=== PATIENT | female | born 1960 | race Hispanic/Latino ===

== ENCOUNTER 2016-12-23 09:21 | Outpatient (CLI) | payer BC ==
[2016-12-23 09:43] LABS: Basophils % (Auto) 0.7 % (0.0-1.8); Eosinophils % (Auto) 2.5 % (0.0-4.3); Hematocrit 38.7 % (30.3-42.9); Hemoglobin 12.9 gm/dl (10.1-14.3); Mean Corpuscular HGB Conc 33 % (30-34); Mean Corpuscular Hemoglobin 31 pg (28-32); Mean Corpuscular Volume 92 fl (79-97); Platelet Count 226 K/mm3 (140-440); Red Blood Count 4.21 M/mm3 (3.65-5.03); Red Cell Distribution Width 14.5 % (13.2-15.2); White Blood Count 6.6 K/mm3 (4.5-11.0)
[2016-12-23 10:03] LABS: Alanine Aminotransferase 17 units/L (7-56); Albumin 3.8 g/dL (3.9-5); Albumin/Globulin Ratio 1.3 %; Alkaline Phosphatase 100 units/L (35-129); Anion Gap 15 mmol/L; BUN/Creatinine Ratio 17.77; Blood Urea Nitrogen 16 mg/dL (7-17); Calcium 9.3 mg/dL (8.4-10.2); Carbon Dioxide 24 mmol/L (22-30); Cholesterol 167 mg/dL (50-199); Glucose 133 mg/dL (65-100); HDL Cholesterol 41 mg/dL (40-59); LDL Cholesterol,Direct 98 mg/dL (50-130); Potassium 3.4 mmol/L (3.6-5.0); Sodium 139 mmol/L (137-145); Total Protein 6.8 g/dL (6.3-8.2); Triglycerides 141 mg/dL (2-149)
== END 2016-12-23 09:22 | disposition home or self-care (01) ==
LOC: LAB 09:21
PROVIDERS: ATTEND Physician Assistant
DX: I10 Essential (primary) hypertension (principal); E78.00 Pure hypercholesterolemia, unspecified; E88.81 Metabolic syndrome and other insulin resistance
CPT/HCPCS: 36415; 80053; 80061; 83036; 85025

== ENCOUNTER 2017-07-01 14:41 | Outpatient (CLI) | payer BC ==
--- NOTE | 2017-07-02 08:55 | Mammography Report ---
Bilateral screening mammogram the tomosynethesis: Compared to 07/15/16. CAD study utilized. Findings: Heterogeneous breast parenchyma bilaterally. Benign calcifications upper outer left breast without significant interval change. No distinct mass. Benign axillary nodes. Impression: Benign findings. Annual followup recommended. BI-RADS CATEGORY: 2 = Benign ACR BI-RADS MAMMOGRAPHIC CODES: 0 = Needs additional imaging evaluation; 1 = Negative; 2 = Benign; 3 = Probably benign; 4 = Suspicious; 5 = Malignant; 6 = Known biopsy-proven malignancy COMMENT: 1. Dense breast tissue, i.e., adenosis, fibrocystic changes, etc., may obscure an underlying neoplasm. 2. Approximately 10% of cancers are not detected with mammography. 3. A negative mammography report should not delay biopsy if a clinically suspicious mass is present. COMMENT: Patient follow-up letters are generated in [employer]
== END 2017-07-01 14:42 | disposition home or self-care (01) ==
LOC: MAMMO 14:41
PROVIDERS: ATTEND Obstetrics & Gynecology
DX: Z12.31 Encounter for screening mammogram for malignant neoplasm of breast (principal)
CPT/HCPCS: 77063; G0202; 77067

== ENCOUNTER 2017-09-23 16:08 | Outpatient (CLI) | payer BC ==
--- NOTE | 2017-09-25 11:31 | Magnetic Resonance Report ---
MRI THORACIC SPINE WITHOUT AND WITH CONTRAST: 09/23/17 16:23:00 CLINICAL: Multiple sclerosis. COMPARISON: 04/14/16 TECHNIQUE: Sagittal and axial T1 and T2, and sagittal STIR sequences plus sagittal and axial T1 fat-sat postcontrast sequences on a 1.5 [place] magnet. FINDINGS: A right paracentral disc protrusion at T2-3 is unchanged compared to prior exam. However, it was described to be at T3-4 on that exam. It produces effacement of the thecal sac but no cord compression. A lesser degree of degenerative disc disease at other levels is stable. The previously described T2 hyperintense right cord lesion at T4-5 is slightly longer and measures 2.7 cm compared to 2.0 cm on the last exam on the STIR sequence. The lesion demonstrates no enhancement. No other cord lesions are identified. IMPRESSION: 1. A previously described cord lesion at T4-5 is slightly longer on this exam. 2. No other cord lesions. 3. A stable right paracentral T2-3 disc protrusion producing effacement of the thecal sac but no cord compression. 4. No new disc protrusion or bulge.
--- NOTE | 2017-10-19 17:16 | Magnetic Resonance Report ---
MR scan of the cranium was performed with and without contrast. Pulse sequences included: 1. T1 weighted sagittal and axial images without contrast and T1 axial and coronal images with contrast 2. T2 weighted axial and coronal images 3. FLAIR axial images 4. Diffusion-weighted axial images 5. Apparent diffusion coefficient images 6. Gradient echo axial T2 images Views of the posterior fossa showed a normal craniocervical junction. Cerebellar pontine angles were normal with normal seventh-eighth nerve complexes. Brainstem and cerebellum were normal. The ventricular system showed no dilatation or distortion. Images of the hemispheres showed no significant areas of increased or decreased signal. Sinuses, pituitary, flow voids in the [place], orbits, and basal ganglia were normal. There are no abnormal areas of enhancement with contrast. Impression: Normal MR scan of the cranium with and without contrast this study was compared with the patient's previous mr scan of 05/22/2016 and no significant changes are seen
== END 2017-09-23 16:09 | disposition home or self-care (01) ==
LOC: MRI 16:08
PROVIDERS: ATTEND Specialist
DX: G35 Multiple sclerosis (principal); M51.24 Other intervertebral disc displacement, thoracic region
CPT/HCPCS: 36415; 70553; 72157; 82565; 84520; A9577

== ENCOUNTER 2018-09-21 11:16 | Outpatient (CLI) | payer BC ==
--- NOTE | 2018-09-21 11:59 | XRay Report ---
AP ABDOMEN: HISTORY: Left flank pain. The abdominal gas pattern is unremarkable. No masses or organomegaly is identified and there is no gross evidence of free air or fluid. No significant soft tissue calcifications are noted. IMPRESSION: Unremarkable abdomen. No obvious nephrolithiasis on x-ray.
== END 2018-09-21 11:17 | disposition home or self-care (01) ==
LOC: XRAY 11:16
PROVIDERS: ATTEND Urology
DX: R10.9 Unspecified abdominal pain (principal); I10 Essential (primary) hypertension; E78.00 Pure hypercholesterolemia, unspecified; K21.9 Gastro-esophageal reflux disease without esophagitis; E66.9 Obesity, unspecified; E11.9 Type 2 diabetes mellitus without complications; M19.90 Unspecified osteoarthritis, unspecified site; Z90.49 Acquired absence of other specified parts of digestive tract; Z90.89 Acquired absence of other organs
CPT/HCPCS: 74018

== ENCOUNTER 2018-10-14 09:59 | Outpatient (CLI) | payer BC ==
[2018-10-14 11:09] LABS: Basophils % (Auto) 0.7 % (0.0-1.8); Eosinophils # (Auto) 0.2 K/mm3 (0.0-0.4); Hematocrit 38.1 % (30.3-42.9); Hemoglobin 12.8 gm/dl (10.1-14.3); Lymphocytes # (Auto) 1.6 K/mm3 (1.2-5.4); Lymphocytes % (Auto) 23.5 % (13.4-35.0); Mean Corpuscular HGB Conc 34 % (30-34); Mean Corpuscular Volume 95 fl (79-97); Monocytes # (Auto) 0.7 K/mm3 (0.0-0.8); Monocytes % (Auto) 9.5 % (0.0-7.3); Platelet Count 228 K/mm3 (140-440); Red Blood Count 4.01 M/mm3 (3.65-5.03); Red Cell Distribution Width 15.4 % (13.2-15.2)
[2018-10-14 11:13] LABS: Albumin 3.8 g/dL (3.9-5); Calcium 9.5 mg/dL (8.4-10.2)
== END 2018-10-14 10:00 | disposition home or self-care (01) ==
LOC: LAB 09:59
PROVIDERS: ATTEND Nurse Practitioner Family
DX: G35 Multiple sclerosis (principal); G37.9 Demyelinating disease of central nervous system, unspecified; E78.00 Pure hypercholesterolemia, unspecified; J45.909 Unspecified asthma, uncomplicated; K21.9 Gastro-esophageal reflux disease without esophagitis; M19.90 Unspecified osteoarthritis, unspecified site
CPT/HCPCS: 36415; 80053; 82306; 85025

== ENCOUNTER 2018-10-19 16:00 | Outpatient (CLI) | payer BC ==
--- NOTE | 2018-10-20 02:39 | Magnetic Resonance Report ---
PROCEDURE: MR BRAIN WO/W CON TECHNIQUE: Magnetic resonance imaging of the brain was performed before and after the IV injection o f paramagnetic contrast. HISTORY: MULTIPLE SCLEROSIS, FAX REPORT TO [phone] COMPARISONS: None . FINDINGS: Skull base and calvarium: Normal. Paranasal sinuses: The visualized paranasal sinuses are clear. Cerebellum: No evidence of hemorrhage, ischemia or mass . Brainstem: No evidence of hemorrhage, ischemia or mass . Cerebrum: No evidence of hemorrhage, ischemia or mass . There are small foci of high signal intensit y in the periventricular white matter which are nonspecific. These could be evidence of early ischemi c gliosis. Multiple sclerosis is considered less likely. Ventricles: Normal in size and morphology for the patient's age. Pituitary gland and sella: Normal. Globes and orbits: Normal. Vasculature: Normal arterial and venous flow voids. Abnormal enhancement: None. IMPRESSION: There is no hemorrhage, edema, mass, mass effect or midline shift. There is no evidence of acute isch emic injury. There are small foci of high signal intensity in the periventricular white matter which are nonspecif ic. These could be evidence of early ischemic gliosis. Multiple sclerosis is considered less likely. There is no abnormal enhancement. This document is electronically signed by Owen Nogueira MD., October 20 2018 02:37:59 AM ET
--- NOTE | 2018-10-20 19:00 | Magnetic Resonance Report ---
PROCEDURE: MR CERVICAL SPINE WO/W CON HISTORY: MULTIPLE SCLEROSIS, FAX REPORT TO [phone] FINDINGS: MRI of the cervical spine was performed using sagittal T1, sagittal T2, sagittal inversion recovery, axial T1, axial T2*gradient echo, and axial and sagittal postcontrast T1-weighted images ob tained following the intravenous administration of gadolinium-based contrast. These images demonstrate that the visualized portion of the posterior fossa is within normal limits. The C1-C2 articulation is normally aligned. At C2-C3 there are no posterior disc abnormalities. At C3-C4 there is a minimal posterior disc bulge which does not result in canal stenosis or significa nt neural foraminal narrowing. At C4-C5 there is a small posterior disc bulge which mildly effaces the anterior margin of the thecal sac but does not result in canal stenosis. There is no evidence of significant neural foraminal narr owing or nerve root impingement. At C5-C6 there is a central and left paracentral disc protrusion which effaces the anterior margin of thecal sac and results in mild canal stenosis. There is [id number] left and mild right foramin al narrowing without definite nerve root impingement. At C6-C7 there is loss of disc height and T2 signal intensity. There is mild bilateral neural foramin al narrowing without nerve root impingement. At C7-T1 there is loss of disc T2 signal intensity. There are no posterior disc abnormalities. At T1-T2 there are no posterior disc abnormalities. At T2-T3 there is a right paracentral disc protrusion which does not result in canal stenosis. There is mild right foraminal narrowing. There is no evidence of demyelinating disease. Following administration of intravenous contrast, no a bnormal enhancement is seen. IMPRESSION: Mild canal stenosis at C5-C6 No MR evidence of demyelinating disease in the cervical spine This document is electronically signed by Greg Fajardo MD., October 20 2018 06:57:53 PM ET
--- NOTE | 2018-10-20 19:13 | Magnetic Resonance Report ---
PROCEDURE: MR THORACIC SPINE WO/W CON HISTORY: MULTIPLE SCLEROSIS, FAX REPORT TO [phone] FINDINGS: MRI of the thoracic spine was performed using sagittal T1, sagittal T2, sagittal inversion recovery, axial T2, axial T1 and axial and sagittal postcontrast T1-weighted images obtained followin g the intravenous administration of gadolinium-based contrast. These images demonstrate a right paracentral disc protrusion at T2-T3 which does not result in canal stenosis or nerve root impingement. There is also a small right paracentral disc protrusion at T3-T4 which does not result in canal stenosis or significant neural foraminal narrowing.At T10-11, there is a small right paracentral disc protrusion which does not result in canal stenosis or nerve root impi ngement. At all other levels of the thoracic spine there is loss of disc T2 signal intensity. There are no pos terior disc abnormalities. The conus medullaris lies at the level of L1 and appears unremarkable. There is a region of increased T2 signal intensity within the thoracic cord at the levels of T4-T5, m easuring approximately 0.4 cm AP, 0.6 cm transverse and extending for 2.3 cm along the long axis of t he cord. This would be consistent with demyelinating disease. This does not display abnormal enhancem ent following contrast administration. There is a region of abnormal low T1, increased inversion recovery signal within the anterior aspect of T12. This appears to enhance following contrast administration measuring approximately 1.3 cm. Thi s lesion is not characterized. Metastatic disease is not excluded although no other similar lesion is identified. Consider bone scan or thin section CT for further evaluation. IMPRESSION: Region of abnormal cord signal at T4-T5 consistent with demyelination in patient with rep orted known multiple sclerosis. This does not enhance following contrast ministration Bone lesion within T12, not characterized. Consider bone scan or thin section CT. This document is electronically signed by Greg Fajardo MD., October 20 2018 07:11:59 PM ET
== END 2018-10-19 16:01 | disposition home or self-care (01) ==
LOC: MRI 16:00
PROVIDERS: ATTEND Nurse Practitioner Family
DX: G35 Multiple sclerosis (principal); M50.21 Other cervical disc displacement, high cervical region; M48.02 Spinal stenosis, cervical region; M51.24 Other intervertebral disc displacement, thoracic region; I10 Essential (primary) hypertension; E78.00 Pure hypercholesterolemia, unspecified; J45.909 Unspecified asthma, uncomplicated; E66.9 Obesity, unspecified; K21.9 Gastro-esophageal reflux disease without esophagitis; M19.90 Unspecified osteoarthritis, unspecified site; E11.9 Type 2 diabetes mellitus without complications; Z90.49 Acquired absence of other specified parts of digestive tract; Z90.89 Acquired absence of other organs
CPT/HCPCS: 70553; 72156; 72157; A9577

== ENCOUNTER 2018-11-30 08:07 | Outpatient (CLI) | payer BC ==
[2018-11-30 08:28] LABS: Basophils # (Auto) 0.1 K/mm3 (0.0-0.1); Basophils % (Auto) 1.2 % (0.0-1.8); Eosinophils # (Auto) 0.3 K/mm3 (0.0-0.4); Eosinophils % (Auto) 4.5 % (0.0-4.3); Hematocrit 39.3 % (30.3-42.9); Hemoglobin 13.1 gm/dl (10.1-14.3); Lymphocytes # (Auto) 1.6 K/mm3 (1.2-5.4); Lymphocytes % (Auto) 24.6 % (13.4-35.0); Mean Corpuscular HGB Conc 33 % (30-34); Mean Corpuscular Volume 95 fl (79-97); Monocytes # (Auto) 0.6 K/mm3 (0.0-0.8); Monocytes % (Auto) 9.3 % (0.0-7.3); Platelet Count 263 K/mm3 (140-440); Red Blood Count 4.13 M/mm3 (3.65-5.03)
[2018-11-30 08:58] LABS: Albumin 3.9 g/dL (3.9-5); Calcium 9.8 mg/dL (8.4-10.2); Chol/HDL Ratio 2.91 %
== END 2018-11-30 08:08 | disposition home or self-care (01) ==
LOC: LAB 08:07
PROVIDERS: ATTEND Physician Assistant
DX: E78.00 Pure hypercholesterolemia, unspecified (principal); E88.81 Metabolic syndrome and other insulin resistance; E78.6 Lipoprotein deficiency; I10 Essential (primary) hypertension; J45.909 Unspecified asthma, uncomplicated; K21.9 Gastro-esophageal reflux disease without esophagitis; E66.9 Obesity, unspecified; E11.9 Type 2 diabetes mellitus without complications; Z90.89 Acquired absence of other organs; Z90.49 Acquired absence of other specified parts of digestive tract
CPT/HCPCS: 36415; 80053; 80061; 83036; 85025

== ENCOUNTER 2019-01-18 09:01 | Outpatient (CLI) | payer BC ==
--- NOTE | 2019-01-18 13:32 | Ultrasound Report ---
RIGHT DIGITAL DIAGNOSTIC MAMMOGRAM with CAD: 01/18/19 09:01:00 CLINICAL: Six-month followup. COMPARISON:07/21/18 FINDINGS: Routine views plus spot magnification views were performed. The breast is heterogeneously dense, which may obscure small masses. No mass, architectural distortion or suspicious calcifications. Ultrasound of the right breast (including all four quadrants and the retroareolar area) was performed and demonstrated numerous benign cysts and no solid mass or suspicious shadowing. IMPRESSION: No mammographic evidence of malignancy.Benign cysts. BI-RADS CATEGORY: 2 -- Benign RECOMMENDATION: Return to routine mammographic screening. COMMENT: 1. Dense breast tissue, i.e., adenosis, fibrocystic changes, etc., may obscure an underlying neoplasm. 2. Approximately 10% of cancers are not detected with mammography. 3. A negative mammography report should not delay biopsy if a clinically suspicious mass is present. COMMENT: Patient follow-up letters are generated by our [employer] application.
== END 2019-01-18 09:02 | disposition home or self-care (01) ==
LOC: MAMMO 09:01
PROVIDERS: ATTEND Obstetrics & Gynecology
DX: N60.01 Solitary cyst of right breast (principal); M17.0 Bilateral primary osteoarthritis of knee; E78.00 Pure hypercholesterolemia, unspecified; I10 Essential (primary) hypertension; K21.9 Gastro-esophageal reflux disease without esophagitis; E66.9 Obesity, unspecified; E11.9 Type 2 diabetes mellitus without complications

== ENCOUNTER 2019-04-12 18:11 | Outpatient (CLI) | payer BC ==
[2019-04-12 18:40] LABS: Basophils # (Auto) 0.1 K/mm3 (0.0-0.1); Basophils % (Auto) 1.2 % (0.0-1.8); Eosinophils # (Auto) 0.2 K/mm3 (0.0-0.4); Eosinophils % (Auto) 2.4 % (0.0-4.3); Hemoglobin 13.3 gm/dl (10.1-14.3); Lymphocytes # (Auto) 1.6 K/mm3 (1.2-5.4); Lymphocytes % (Auto) 24.7 % (13.4-35.0); Mean Corpuscular HGB Conc 33 % (30-34); Mean Corpuscular Volume 93 fl (79-97); Monocytes # (Auto) 0.7 K/mm3 (0.0-0.8); Monocytes % (Auto) 10.3 % (0.0-7.3); Platelet Count 262 K/mm3 (140-440); Red Cell Distribution Width 15.8 % (13.2-15.2)
[2019-04-12 18:56] LABS: Albumin 4.3 g/dL (3.9-5); Calcium 10.1 mg/dL (8.4-10.2)
== END 2019-04-12 18:12 | disposition home or self-care (01) ==
LOC: LAB 18:11
PROVIDERS: ATTEND Psychiatry & Neurology Neurology
DX: G35 Multiple sclerosis (principal); E78.00 Pure hypercholesterolemia, unspecified; I10 Essential (primary) hypertension; J45.909 Unspecified asthma, uncomplicated; K21.9 Gastro-esophageal reflux disease without esophagitis; E11.9 Type 2 diabetes mellitus without complications; Z90.89 Acquired absence of other organs
CPT/HCPCS: 36415; 80053; 85025

== ENCOUNTER 2019-07-26 08:30 | Outpatient (CLI) | payer BC ==
[2019-07-26 08:43] LABS: Basophils # (Auto) 0.1 K/mm3 (0.0-0.1); Basophils % (Auto) 0.8 % (0.0-1.8); Eosinophils # (Auto) 0.1 K/mm3 (0.0-0.4); Eosinophils % (Auto) 2.3 % (0.0-4.3); Hematocrit 38.6 % (30.3-42.9); Hemoglobin 12.8 gm/dl (10.1-14.3); Lymphocytes % (Auto) 16.8 % (13.4-35.0); Mean Corpuscular HGB Conc 33 % (30-34); Mean Corpuscular Volume 92 fl (79-97); Monocytes # (Auto) 0.8 K/mm3 (0.0-0.8); Platelet Count 216 K/mm3 (140-440); Red Blood Count 4.18 M/mm3 (3.65-5.03); Red Cell Distribution Width 15.5 % (13.2-15.2)
[2019-07-26 09:06] LABS: Albumin 3.9 g/dL (3.9-5); Calcium 9.9 mg/dL (8.4-10.2)
== END 2019-07-26 08:31 | disposition home or self-care (01) ==
LOC: LAB 08:30
PROVIDERS: ATTEND Psychiatry & Neurology Neurology
DX: G35 Multiple sclerosis (principal)
CPT/HCPCS: 36415; 80053; 85025

== ENCOUNTER 2019-07-28 08:18 | Outpatient (CLI) | payer BC | END 2019-07-28 08:19 | disposition home or self-care (01) | LOC: ECHO 08:18 | PROVIDERS: ATTEND Family Medicine | DX: M79.89 Other specified soft tissue disorders (principal) | CPT/HCPCS: 93306 ==

== ENCOUNTER 2019-09-06 10:08 | Outpatient (CLI) | payer BC, OTHER ==
--- NOTE | 2019-09-08 12:43 | Magnetic Resonance Report ---
MR thoracic spine wo/w con INDICATION / CLINICAL INFORMATION: 58 years Female; MULTIPLE SCLEROSIS. TECHNIQUE: Multisequence, multiplanar images of the thoracic spine were obtained. Study limited by motion. COMPARISON: 10/19/2018 FINDINGS: ALIGNMENT: Mild excessive kyphosis and mild scoliosis of the thoracic spine identified. VERTEBRAE:Grossly normal marrow signal and vertebral body height for age. Multilevel, mild Schmorl's node seen without adjacent edema. Some component of epidural lipomatosis s een, which is not significantly changed from prior. Costovertebral, costotransverse, and facet joints demonstrate mild, scattered areas of degenerative c hange. Overall, no significant foraminal narrowing appreciated. Note, there is no evidence of edema in the T12 vertebral body, which was seen on prior exam-findings on prior study were felt to be reactive from spondylophyte formation. VISUALIZED SPINAL CORD: Focus of increased T2/STIR signal seen in the thoracic cord at the T4-5 level . This is unchanged from prior exam. INTERVERTEBRAL DISCS: There is a right paracentral/lateral recess disc protrusion at T2-3 which mildl y flattens right anterior hemicord. No impingement. Small left paracentral disc protrusion seen at T1 0-11. Minimal disc disease seen at other levels. Overall, there is no dominant herniation or signific ant canal stenosis appreciated. PARASPINAL SOFT TISSUES: No significant abnormality. ADDITIONAL FINDINGS: None. IMPRESSION: 1. No significant change in the cord signal abnormality when compared with prior exam. No signs of en hancement seen to suggest acute demyelination. Signer Name: Pieter Liriano MD, III Signed: 09/08/2019 12:38 PM Workstation Name: [id number]
--- NOTE | 2019-09-08 12:56 | Magnetic Resonance Report ---
MRI BRAIN 09/08/2019 INDICATION / CLINICAL INFORMATION: MULTIPLE SCLEROSIS. TECHNIQUE: Multiplanar, multisequence MR images of the brain were obtained. COMPARISON: 10/19/2018 FINDINGS: BRAIN / INTRACRANIAL CONTENTS: Unenhanced and enhanced MR images of the brain were obtained and orion red to a prior exam from 10/19/2018. Overall, there is been no significant change. Again seen are a few nonspecific periventricular and deep white matter T2 weighted hyperintensities i n the cerebral hemispheric white matter. There is no evidence of associated diffusion signal abnormal ity. There is no abnormal contrast enhancement. Ventricles and sulci are normal in size and shape. There is no evidence of acute ischemic injury, hemorrhage, or mass. There are no abnormal extra-axial fluid collections. There is no abnormal contrast enhancement. EXTRACRANIAL: Unremarkable CRANIOCERVICAL JUNCTION: No significant abnormality. VASCULAR FLOW-VOIDS: No significant abnormality. IMPRESSION: No acute abnormality. A few scattered white matter T2 weighted hyperintensities are present, unchanged when compared to 10/19. Signer Name: Tito Villegas MD Signed: 09/08/2019 12:52 PM Workstation Name: [id number]
--- NOTE | 2019-09-08 13:02 | Magnetic Resonance Report ---
MRI CERVICAL SPINE 09/08/2019 INDICATION / CLINICAL INFORMATION: MULTIPLE SCLEROSIS. COMPARISON: 10/19/2018 FINDINGS: GENERAL OBSERVATIONS: Unenhanced and enhanced MR images of the cervical spine were obtained and orion red to prior exam from 10/19/2018. There is been no change. Reversal of cervical lordosis is centered at the C5 level. Multilevel degenerative disc and facet kailyn nges are present. There is no evidence of spinal cord compression. There is no evidence of abnormal signal or enhanceme nt within the spinal cord. [id number] ANALYSIS: C7-T1: Mild symmetric diffuse disc bulging. C6-7: Moderate diffuse disc bulging, slightly more pronounced on the left. C5-6: Moderate symmetric diffuse disc bulging. C4-5: Mild diffuse disc bulging. C3-4: Minimal diffuse disc bulging. CRANIO-CERVICAL JUNCTION: Unremarkable. BONE MARROW: No significant abnormality. PARASPINAL SOFT TISSUES: No significant abnormality. IMPRESSION: Multilevel degenerative disc changes. No evidence of spinal cord abnormality. No significant change when compared to 10/19/2018. Signer Name: Tito Villegas MD Signed: 09/08/2019 12:57 PM Workstation Name: [id number]
== END 2019-09-06 10:09 | disposition home or self-care (01) ==
LOC: MRI 10:08
PROVIDERS: ATTEND Psychiatry & Neurology Neurology
DX: M47.813 Spondylosis without myelopathy or radiculopathy, cervicothoracic region (principal); M51.44 Schmorl's nodes, thoracic region; E88.2 Lipomatosis, not elsewhere classified; M50.23 Other cervical disc displacement, cervicothoracic region; M40.294 Other kyphosis, thoracic region; M41.84 Other forms of scoliosis, thoracic region; M51.24 Other intervertebral disc displacement, thoracic region
CPT/HCPCS: 70553; 72156; 72157; A9577

== ENCOUNTER 2019-09-13 15:25 | Outpatient (CLI) | payer BC ==
--- NOTE | 2019-09-13 17:44 | Vascular Lab Report ---
DUPLEX DOPPLER LOWER EXTREMITY ARTERIAL, BILATERAL INDICATION / CLINICAL INFORMATION: EDEMA. TECHNIQUE: Arterial duplex examination of both lower extremities performed using B-mode, color flow and spectral Doppler assessment. FINDINGS: RIGHT: Common Femoral Artery: PSV 88 cm/sec. Triphasic waveform. Proximal SFA: PSV 101 cm/sec. Triphasic waveform. Mid SFA: PSV 122 cm/sec. Triphasic waveform. Distal SFA: PSV 84 cm/sec. Triphasic waveform. Popliteal artery: PSV 74 cm/sec. Triphasic waveform. Posterior tibial artery: PSV 33 cm/sec. Biphasic waveform. Dorsalis Pedis Artery: PSV 70 cm/sec. Biphasic waveform. LEFT: Common Femoral Artery: PSV 112 cm/sec. Triphasic waveform. Proximal SFA: PSV 121 cm/sec. Triphasic waveform. Mid SFA: PSV 103 cm/sec. Triphasic waveform. Distal SFA: PSV 117 cm/sec. Triphasic waveform. Popliteal artery: PSV 83 cm/sec. Triphasic waveform. Posterior tibial artery: PSV 108 cm/sec. Triphasic waveform. Dorsalis Pedis Artery: PSV 36 cm/sec. Triphasic waveform. Right SUMI: Not performed. Left SUMI: Not performed. IMPRESSION: 1. Mild right distal crural peripheral vascular disease with abnormal biphasic waveforms. 2. No hemodynamically significant peripheral vascular disease within left lower extremity arteries Ankle-Brachial Index (SUMI): - Calcified arteries > 1.4 - Normal = 0.9-1.4 - Mild PAD = 0.7-0.89 - Moderate PAD = 0.51-0.69 - Severe PAD < 0.5 Doppler Waveform: - Triphasic is normal. - Biphasic is abnormal if clear transition from triphasic signal along vascular tree. - Monophasic is abnormal. Signer Name: Joshua Lynn MD Signed: 09/13/2019 5:40 PM Workstation Name: [email or web address]
== END 2019-09-13 15:26 | disposition home or self-care (01) ==
LOC: VAS 15:25
PROVIDERS: ATTEND Internal Medicine Cardiovascular Disease
DX: R60.0 Localized edema (principal); I10 Essential (primary) hypertension
CPT/HCPCS: 93925

== ENCOUNTER 2019-12-07 09:04 | Outpatient (CLI) | payer BC ==
[2019-12-07 09:44] LABS: Basophils # (Auto) 0.1 K/mm3 (0.0-0.1); Basophils % (Auto) 1.4 % (0.0-1.8); Eosinophils # (Auto) 0.1 K/mm3 (0.0-0.4); Eosinophils % (Auto) 2.7 % (0.0-4.3); Hematocrit 37.7 % (30.3-42.9); Hemoglobin 12.6 gm/dl (10.1-14.3); Lymphocytes % (Auto) 21.3 % (13.4-35.0); Mean Corpuscular HGB Conc 34 % (30-34); Mean Corpuscular Volume 93 fl (79-97); Monocytes # (Auto) 0.5 K/mm3 (0.0-0.8); Monocytes % (Auto) 11.1 % (0.0-7.3); Platelet Count 257 K/mm3 (140-440); Red Blood Count 4.04 M/mm3 (3.65-5.03); Red Cell Distribution Width 14.6 % (13.2-15.2)
[2019-12-07 10:15] LABS: Albumin 4.2 g/dL (3.9-5); Chol/HDL Ratio 2.77 %
[2019-12-11 13:45] LABS: Vitamin D, 25-OH, D2 <4 ng/mL
== END 2019-12-07 09:05 | disposition home or self-care (01) ==
LOC: LAB 09:04
PROVIDERS: ATTEND Physician Assistant
DX: I10 Essential (primary) hypertension (principal); E78.00 Pure hypercholesterolemia, unspecified
CPT/HCPCS: 36415; 80053; 80061; 82306; 83036; 85025

== ENCOUNTER 2020-04-13 08:26 | Outpatient (CLI) | payer BC ==
[2020-04-13 09:10] LABS: Basophils # (Auto) 0.1 K/mm3 (0.0-0.1); Basophils % (Auto) 1.3 % (0.0-1.8); Eosinophils # (Auto) 0.2 K/mm3 (0.0-0.4); Eosinophils % (Auto) 3.4 % (0.0-4.3); Hematocrit 37.1 % (30.3-42.9); Hemoglobin 12.7 gm/dl (10.1-14.3); Lymphocytes # (Auto) 1.2 K/mm3 (1.2-5.4); Lymphocytes % (Auto) 23.8 % (13.4-35.0); Mean Corpuscular HGB Conc 34 % (30-34); Mean Corpuscular Volume 92 fl (79-97); Monocytes # (Auto) 0.5 K/mm3 (0.0-0.8); Monocytes % (Auto) 10.7 % (0.0-7.3); Platelet Count 257 K/mm3 (140-440); Red Blood Count 4.02 M/mm3 (3.65-5.03); Red Cell Distribution Width 14.4 % (13.2-15.2)
[2020-04-13 09:37] LABS: Albumin 4.2 g/dL (3.9-5)
== END 2020-04-13 08:27 | disposition home or self-care (01) ==
LOC: LAB 08:26
PROVIDERS: ATTEND Psychiatry & Neurology Neurology
DX: Z09 Encounter for follow-up examination after completed treatment for conditions other than malignant neoplasm (principal); G35 Multiple sclerosis; E55.9 Vitamin D deficiency, unspecified; Z79.899 Other long term (current) drug therapy
CPT/HCPCS: 36415; 80053; 82306; 85025

== ENCOUNTER 2020-06-13 07:47 | Outpatient (CLI) | payer BC ==
--- NOTE | 2020-06-13 09:44 | XRay Report ---
LUMBOSACRAL SPINE 3 VIEWS INDICATION: Lower back pain in left hip pain. COMPARISON: None. IMPRESSION: Normal alignment. Severe disc space narrowing at L5-S1. Mild degenerative endplate soriano ges are noted at the remaining levels. Mild diffuse facet arthropathy. The sacrum and SI joints are u nremarkable. No acute osseous or soft tissue abnormality. LEFT HIP 3 VIEWS INDICATION: Left hip pain. COMPARISON: None. IMPRESSION: No acute osseous or soft tissue abnormality. Mild osteoarthritic joint space narrowin g is suspected in the left hip. No evidence for bone lesion or avascular necrosis. Signer Name: Rodney Perez Jr, MD Signed: 06/13/2020 9:39 AM Workstation Name: [id number]
== END 2020-06-13 07:48 | disposition home or self-care (01) ==
LOC: XRAY 07:47
PROVIDERS: ATTEND Orthopaedic Surgery
DX: M48.07 Spinal stenosis, lumbosacral region (principal); M47.817 Spondylosis without myelopathy or radiculopathy, lumbosacral region; M17.12 Unilateral primary osteoarthritis, left knee
CPT/HCPCS: 72100

== ENCOUNTER 2020-07-04 11:05 | Outpatient (CLI) | payer BC ==
--- NOTE | 2020-07-04 17:02 | Magnetic Resonance Report ---
MRI LUMBAR SPINE INDICATION / CLINICAL INFORMATION: M25.552 PAIN LET HIP M54.5 LOW BACK PAIN. COMPARISON: None available. FINDINGS: GENERAL OBSERVATIONS: Unenhanced MR images of the lumbar spine were obtained. There is mild left convex scoliosis centered at the L3 level. Vertebral body alignment is otherwise u nremarkable. There is no evidence of acute abnormality. [id number] ANALYSIS: L5-S1: Disc space narrowing and moderate symmetric diffuse disc bulging and facet degenerative change s. Mild central canal narrowing with no evidence of lateralization. L4-5: Mild diffuse disc bulging and moderate facet degenerative changes. Moderate central canal narro wing with no evidence of lateralization. L3-4: Mild symmetric diffuse disc bulging. L2-3: Unremarkable. L1-2: Unremarkable. BONE MARROW: Degenerative changes, otherwise unremarkable. SPINAL CORD/CAUDA EQUINA: No significant abnormality. PARASPINAL SOFT TISSUES: No significant abnormality. IMPRESSION: Mild to moderate multilevel degenerative changes as detailed above. Signer Name: Tito Villegas MD Signed: 07/04/2020 5:00 PM Workstation Name: [id number]
== END 2020-07-04 11:06 | disposition home or self-care (01) ==
LOC: MRI 11:05
PROVIDERS: ATTEND Orthopaedic Surgery
DX: M51.27 Other intervertebral disc displacement, lumbosacral region (principal); M48.07 Spinal stenosis, lumbosacral region; M25.552 Pain in left hip
CPT/HCPCS: 72148

== ENCOUNTER 2020-08-03 09:03 | Outpatient (CLI) | payer BC ==
[2020-08-03 10:50] LABS: Basophils # (Auto) 0.1 K/mm3 (0.0-0.1); Basophils % (Auto) 1.5 % (0.0-1.8); Eosinophils # (Auto) 0.3 K/mm3 (0.0-0.4); Eosinophils % (Auto) 5.2 % (0.0-4.3); Hematocrit 32.3 % (30.3-42.9); Hemoglobin 11.4 gm/dl (10.1-14.3); Lymphocytes # (Auto) 1.2 K/mm3 (1.2-5.4); Lymphocytes % (Auto) 24.5 % (13.4-35.0); Mean Corpuscular HGB Conc 35 % (30-34); Mean Corpuscular Volume 90 fl (79-97); Monocytes # (Auto) 0.5 K/mm3 (0.0-0.8); Monocytes % (Auto) 10.9 % (0.0-7.3); Platelet Count 248 K/mm3 (140-440); Red Blood Count 3.57 M/mm3 (3.65-5.03); Red Cell Distribution Width 14.9 % (13.2-15.2)
[2020-08-03 11:17] LABS: Albumin 3.6 g/dL (3.9-5); Calcium 9.7 mg/dL (8.4-10.2)
--- NOTE | 2020-08-03 15:16 | Magnetic Resonance Report ---
MR brain wo/w con INDICATION / CLINICAL INFORMATION: 59 years Female; MULTIPLE SCLEROSIS. TECHNIQUE: Multiplanar, multisequence MR images of the brain were obtained. Motion artifact, particularly on pos tcontrast sequences COMPARISON: 09/06/2019 FINDINGS: BRAIN / INTRACRANIAL CONTENTS: No acute hemorrhage, mass effect, midline shift, hydrocephalus, or acu te, large territorial infarct. No chronic infarct or atrophy. Minimal, nonspecific white matter disea se identified. No significant change from prior I see no signs of abnormal enhancement following contrast administration. CRANIOCERVICAL JUNCTION: No significant abnormality. VASCULAR FLOW-VOIDS: No significant abnormality. ORBITS: No significant abnormality of visualized orbits. SINUSES / MASTOIDS: No significant abnormality in the visualized paranasal sinuses or mastoid air jerald ls. ADDITIONAL FINDINGS: None. IMPRESSION: 1. No focal mass, hemorrhage, hydrocephalus, or acute ischemia. 2. Minimal, nonspecific white matter disease with no significant interval change from prior exam appr eciated. Signer Name: Pieter Liriano MD, III Signed: 08/03/2020 3:12 PM Workstation Name: [email or web address]
--- NOTE | 2020-08-03 15:57 | Magnetic Resonance Report ---
MR cervical spine wo/w con INDICATION / CLINICAL INFORMATION: 59 years Female; MULTIPLE SCLEROSIS. TECHNIQUE: Multisequence, multiplanar images of the cervical spine were obtained. Motion artifact COMPARISON: 09/08/2019 FINDINGS: CRANIOCERVICAL JUNCTION:No significant abnormality. ALIGNMENT: No significant abnormality. VERTEBRAE:Grossly normal marrow signal and vertebral body height for age. VISUALIZED SPINAL CORD: No significant abnormality. No cord lesions seen. INTERVERTEBRAL DISCS: Grossly normal in height and signal intensity. [id number] ANALYSIS: C2-3: Minimal facet hypertrophy. C3-4: Mild disc bulge. C4-5: Mild disc bulge. Mild to moderate foraminal narrowing on the right from uncinate hypertrophy. M ild on the left. C5-6: Moderate disc bulge and left paracentral disc protrusion. Mild flattening of the left anterior hemicord. No impingement. Moderate foraminal narrowing on the left and mild on the right from uncinat e and facet hypertrophy. Please correlate with left C6 nerve root symptomatology. Similar findings se en on prior. C6-7: Mild disc bulge. Moderate to marked foraminal narrowing on the left and moderate on the right f rom uncinate and facet hypertrophy. Findings could affect the left C7 nerve. Similar findings seen on prior. C7-T1: Mild disc bulge. Eqrs-uk-lbwllnwi facet hypertrophy. PARASPINAL SOFT TISSUES: No significant abnormality. ADDITIONAL FINDINGS: I see no signs of abnormal enhancement following contrast administration. IMPRESSION: 1. Degenerative changes of the cervical spine as described above. Most marked findings appear to be a t C5-6 and C6-7. Please correlate with dermatomal distribution of patient's symptoms, if present. 2. No definitive signs of cord lesion. Signer Name: Pieter Liriano MD, III Signed: 08/03/2020 3:53 PM Workstation Name: [id number]
--- NOTE | 2020-08-03 16:07 | Magnetic Resonance Report ---
MR thoracic spine wo/w con INDICATION / CLINICAL INFORMATION: 59 years Female; MULTIPLE SCLEROSIS. TECHNIQUE: Multisequence, multiplanar images of the thoracic spine were obtained. COMPARISON: None available. FINDINGS: ALIGNMENT: Normal thoracic kyphosis without significant scoliosis. VERTEBRAE:Grossly normal marrow signal and vertebral body height for age. Small Schmorl's nodes are seen at various levels. Costovertebral, costotransverse, and facet joints demonstrate mild, scattered areas of degenerative c hange. Overall, no significant foraminal narrowing appreciated. VISUALIZED SPINAL CORD: Cord signal abnormality seen at the T4-5 level-unchanged from prior. No signs of enhancement seen. No other evidence of cord lesion appreciated. Visualized conus medullaris is g rossly normal in appearance. INTERVERTEBRAL DISCS: No significant abnormality. PARASPINAL SOFT TISSUES: No significant abnormality. ADDITIONAL FINDINGS: None. IMPRESSION: 1. No significant interval change from prior exam appreciated. Cord lesion again noted at T4-5 level. Signer Name: Pieter Liriano MD, III Signed: 08/03/2020 4:03 PM Workstation Name: [id number]
== END 2020-08-03 09:04 | disposition home or self-care (01) ==
LOC: MRI 09:03
PROVIDERS: ATTEND Psychiatry & Neurology Neurology
DX: Z09 Encounter for follow-up examination after completed treatment for conditions other than malignant neoplasm (principal); M47.812 Spondylosis without myelopathy or radiculopathy, cervical region; M51.44 Schmorl's nodes, thoracic region; M89.38 Hypertrophy of bone, other site; G93.89 Other specified disorders of brain; G35 Multiple sclerosis; Z11.4 Encounter for screening for human immunodeficiency virus [HIV]; Z55.9 Problems related to education and literacy, unspecified; Z79.899 Other long term (current) drug therapy
CPT/HCPCS: 36415; 70553; 72156; 72157; 80053; 82306; 85025; 86689; A9575

== ENCOUNTER 2020-09-06 08:32 | Outpatient (CLI) | payer BC ==
--- NOTE | 2020-09-06 16:16 | Magnetic Resonance Report ---
MRI of the left hip obtained without IV contrast INDICATION / CLINICAL INFORMATION: PAIN IN LEFT HIP. TECHNIQUE: Multiplanar, multisequence MR images were obtained. Routine MRI of the left hip obtained without IV c ontrast COMPARISON: None available. FINDINGS: Severe to advanced degenerative changes of the left hip with small left hip effusion. There is a mace rated tear involving the labrum. No osteonecrosis of the left hip is identified. Review of the intrapelvic contents demonstrates several small cysts in the region of the cervix. No s ignificant free pelvic fluid is identified. There is mild tendinosis identified involving the distal aspect of the left gluteus medius tendon IMPRESSION: Advanced degenerative changes of the left hip with small left hip effusion and macerated tear of the superior labrum, likely chronic. Signer Name: Marino Carter MD Signed: 09/06/2020 4:11 PM Workstation Name: [id number]
== END 2020-09-06 08:33 | disposition home or self-care (01) ==
LOC: MRI 08:32
PROVIDERS: ATTEND Orthopaedic Surgery
DX: M16.12 Unilateral primary osteoarthritis, left hip (principal); M25.475 Effusion, left foot; N88.8 Other specified noninflammatory disorders of cervix uteri
CPT/HCPCS: 73721

== ENCOUNTER 2020-09-20 10:54 | Outpatient (CLI) | payer BC ==
[2020-09-20 15:05] LABS: Basophils # (Auto) 0.1 K/mm3 (0.0-0.1); Basophils % (Auto) 1.2 % (0.0-1.8); Eosinophils # (Auto) 0.4 K/mm3 (0.0-0.4); Eosinophils % (Auto) 5.3 % (0.0-4.3); Hematocrit 35.2 % (30.3-42.9); Hemoglobin 11.7 gm/dl (10.1-14.3); Lymphocytes # (Auto) 1.4 K/mm3 (1.2-5.4); Lymphocytes % (Auto) 19.9 % (13.4-35.0); Mean Corpuscular HGB Conc 33 % (30-34); Mean Corpuscular Volume 92 fl (79-97); Monocytes # (Auto) 0.7 K/mm3 (0.0-0.8); Monocytes % (Auto) 10.4 % (0.0-7.3); Platelet Count 271 K/mm3 (140-440); Red Blood Count 3.82 M/mm3 (3.65-5.03); Red Cell Distribution Width 17.6 % (13.2-15.2)
[2020-09-20 15:24] LABS: Erythrocyte Sedimentation Rate 37 mm/Hr (0-20)
--- NOTE | 2020-09-20 15:44 | XRay Report ---
LEFT HIP 3 VIEWS INDICATION: LEFT HIP PAIN. COMPARISON: 06/13/2020 IMPRESSION: No acute osseous or soft tissue abnormality. Moderate osteoarthritic joint space narr owing is evident at the left hip. This appears slightly advanced since 06/05/2020 exam. No evidence f or osteonecrosis. LEFT KNEE 3 VIEWS INDICATION: Left knee pain. COMPARISON: None. IMPRESSION: Left knee replacement changes are present. The hardware appears well applied. No evidenc e for fracture, loosening or infection. The soft tissues are unremarkable. No joint effusion is iden tified. Signer Name: Rodney Perez Jr, MD Signed: 09/20/2020 3:40 PM Workstation Name: [id number]
== END 2020-09-20 10:55 | disposition home or self-care (01) ==
LOC: LAB 10:54
PROVIDERS: ATTEND Orthopaedic Surgery
DX: M16.12 Unilateral primary osteoarthritis, left hip (principal); Z96.652 Presence of left artificial knee joint
CPT/HCPCS: 36415; 85025; 85652; 86140

== ENCOUNTER 2020-10-22 08:00 | Inpatient (IN) | payer BC ==
[2020-10-16 15:20] LABS: Basophils # (Auto) 0.1 K/mm3 (0.0-0.1); Eosinophils # (Auto) 0.3 K/mm3 (0.0-0.4); Eosinophils % (Auto) 3.1 % (0.0-4.3); Hematocrit 37.2 % (30.3-42.9); Hemoglobin 12.7 gm/dl (10.1-14.3); Lymphocytes # (Auto) 1.4 K/mm3 (1.2-5.4); Lymphocytes % (Auto) 16.4 % (13.4-35.0); Mean Corpuscular HGB Conc 34 % (30-34); Mean Corpuscular Volume 91 fl (79-97); Monocytes # (Auto) 0.6 K/mm3 (0.0-0.8); Monocytes % (Auto) 7.5 % (0.0-7.3); Platelet Count 261 K/mm3 (140-440); Red Cell Distribution Width 16.7 % (13.2-15.2)
[2020-10-16 15:32] LABS: INR 0.98 (0.87-1.13)
[2020-10-16 15:33] LABS: Partial Thromboplastin Time 30.9 Sec. (24.2-36.6)
[2020-10-16 15:45] LABS: Bacteria,Urine 1+ /HPF (Negative); Bilirubin,Urine NEG (Negative); Blood,Urine NEG (Negative); Color,Urine Yellow (Yellow); Hyaline Casts,Urine 1 /LPF; Mucus,Urine FEW /HPF; Protein,Urine <15 mg/dL mg/dL (Negative); Urobilinogen,Urine < 2.0 mg/dL (<2.0)
[2020-10-16 15:50] LABS: Albumin 4.2 g/dL (3.9-5)
--- NOTE | 2020-10-16 16:55 | Anesthesia Consultation ---
Anesthesia Consult and Med Hx Date of service: 10/16/20 - Airway Anesthetic Teeth Evaluation: Good ROM Head & Neck: Adequate Mental/Hyoid Distance: Adequate Mallampati Class: Class II Intubation Access Assessment: Probably Good - Pulmonary Exam CTA: Yes - Cardiac Exam Cardiac Exam: RRR - Pre-Operative Health Status ASA Pre-Surgery Classification: ASA3 Proposed Anesthetic Plan: General - Pulmonary Hx Smoking: No Hx Asthma: Yes (no recent exacerbation) Hx Respiratory Symptoms: No Hx Sleep Apnea: No (SHON PRE SCREEN HIGH RISK) - Cardiovascular System Hx Hypertension: No (lisinopril for renal protection only) Hx Heart Attack/AMI: No Hx Percutaneous Transluminal Coronary Angioplasty (PTCA): No Hx Cardia Arrhythmia: No Hx Peripheral Vascular Disease: Yes (RLE) - Central Nervous System Hx Neuromuscular Disorder: Yes (multiple sclerosis) CVA: No Hx Back Pain: Yes Hx Psychiatric Problems: Yes (depression) - Gastrointestinal Hx Gastroesophageal Reflux Disease: Yes (Moderate; controlled w/ Protonix and occ Pepcid) - Endocrine Hx Renal Disease: Yes (history of renal stones; nml function) Hx Liver Disease: No Hx Non-Insulin Dependent Diabetes: No (On metformin for insulin resistance; reports normal A1c) Hx Thyroid Disease: No - Hematic Hx Anemia: No - Other Systems Hx Obesity: Yes (BMI 37) - Additional Comments Anesthesia Medical History Comments: Hx PONV x 2 with previous anesthetics. Also reports hx laryngospasm on induction which prompted cancellation of scheduled surgery.
[2020-10-22 10:49] LABS: Bacteria,Urine 1+ /HPF (Negative); Bilirubin,Urine NEG (Negative); Blood,Urine NEG (Negative); Color,Urine Amber (Yellow); Mucus,Urine FEW /HPF; Protein,Urine <15 mg/dL mg/dL (Negative); Urobilinogen,Urine < 2.0 mg/dL (<2.0)
[2020-10-25] MEDS ORDERED: ACETAMINOPHEN 500 MG TAB PO SCH (06:00)
[2020-10-25] MEDS ORDERED: SCOPOLAMINE TRANSDERMAL PATCH 72 HR TD NR (06:00)
[2020-10-25] MEDS ORDERED: CELECOXIB 200 MG CAP PO NR (06:00)
[2020-10-25] MEDS ORDERED: ceFAZolin/Water 2 GM/20 ML 2 GM/20 ML SYRINGE IV NR (06:00)
[2020-10-25] MEDS ORDERED: GABAPENTIN 300 MG CAP PO NR (06:00)
[2020-10-25] MEDS ORDERED: BACTERIOSTATIC SODIUM CHLORIDE 0.9% 30 ML VIAL INFILTRATI ONE (06:18)
[2020-10-25] MEDS: MIDAZOLAM 2 MG/2 ML INJ IV NR ×2 (06:55→07:20)
[2020-10-25] MEDS: LACTATED RINGERS 1,000 ML IV SCH ×2 (06:55→15:49)
[2020-10-25] MEDS ORDERED: SUGAMMADEX SODIUM 200 MG/2 ML VIAL IV ONE (07:16)
[2020-10-25] MEDS ORDERED: MIDAZOLAM 2 MG/2 ML INJ ONE (07:16)
[2020-10-25] MEDS ORDERED: fentaNYL 100 MCG/2 ML INJ ONE (07:16)
[2020-10-25] MEDS ORDERED: KETAMINE/STERILE WATER 50 MG/ML SYRINGE ONE (07:20)
[2020-10-25] MEDS ORDERED: SODIUM CHLORIDE P/F VIAL 10 ML 10 ML ONE ×3 (07:21→07:49)
[2020-10-25] MEDS ORDERED: fentaNYL 100 MCG/2 ML INJ IV SCH (07:30)
--- NOTE | 2020-10-25 07:31 | Anesthesia Day of Surgery ---
Anesthesia Day of Surgery - Day of Surgery Patient Examined: Yes Patient H&P Reviewed: Yes Patient is NPO: Yes
[2020-10-25] MEDS ORDERED: ROCURONIUM 50 MG/5 ML INJ IV ONE ×2 (07:33→09:53)
[2020-10-25] MEDS ORDERED: KETOROLAC 30 MG/1 ML INJ ONE ×2 (07:36→08:59)
[2020-10-25] MEDS ORDERED: BUPIVACAINE/PF (0.25%) 2.5 MG/ML 30 ML VIAL INFILTRATI ONE ×4 (07:37→12:12)
[2020-10-25] MEDS ORDERED: TRANEXAMIC ACID 1,000 MG/10 ML ONE (07:37)
[2020-10-25] MEDS ORDERED: SODIUM CHLORIDE 0.9% 50 ML ONE ×2 (07:37→09:25)
[2020-10-25] MEDS ORDERED: BACITRACIN 50,000 UNIT VIAL ONE (07:38)
[2020-10-25] MEDS ORDERED: NEOMY 40 MG/POLYMYXIN B 200,000 UNITS/ML (GU) AMPULE IR ONE (07:38)
[2020-10-25] MEDS ORDERED: OXYCHLOROSENE 2 GM POWDER IR ONE ×4 (07:41→10:45)
[2020-10-25] MEDS ORDERED: MAGNESIUM SULFATE 2 GM/50 ML BAG IV ONE (07:44)
[2020-10-25] MEDS ORDERED: SODIUM CHLORIDE 0.9% 100 ML ONE ×2 (07:46→11:23)
[2020-10-25] MEDS ORDERED: ONDANSETRON 4 MG/2 ML INJ IV PRN ×2 (08:00→12:51)
[2020-10-25] MEDS ORDERED: dexAMETHasone 20 MG/5 ML VIAL ONE (09:00)
[2020-10-25] MEDS ORDERED: MORPHINE 10 MG/1 ML INJ ONE (09:24)
[2020-10-25] MEDS ORDERED: WATER FOR IRRIG STERILE 1,500 ML BOTTLE IR ONE ×2 (09:33)
[2020-10-25] MEDS ORDERED: propofoL 200 MG/20 ML VIAL IV ONE ×10 (09:42→12:15)
[2020-10-25] MEDS ORDERED: SODIUM CHLORIDE 0.9% IRR 1,500 ML BOTTLE IR ONE ×2 (10:45)
[2020-10-25] MEDS ORDERED: POLYMYXIN B SULFATE 500,000 UNIT VIAL IV ONE ×2 (11:35)
[2020-10-25] MEDS ORDERED: BACITRACIN 50,000 UNIT VIAL IR ONE ×2 (11:35)
[2020-10-25] MEDS ORDERED: SODIUM CHLORIDE 0.9% IRRIG SOLN 3000 ML IR ONE ×2 (11:35)
[2020-10-25] MEDS ORDERED: LACTATED RINGERS 1,000 ML ONE (12:05)
[2020-10-25] MEDS ORDERED: SODIUM CHLORIDE 0.9% 50 ML VIAL INFILTRATI ONE ×2 (12:12)
[2020-10-25] MEDS ORDERED: MORPHINE 10 MG/1 ML INJ IM ONE ×2 (12:12)
[2020-10-25] MEDS ORDERED: KETOROLAC 30 MG/1 ML INJ IM ONE ×2 (12:12)
[2020-10-25] MEDS ORDERED: ONDANSETRON 4 MG/2 ML INJ ONE (12:26)
[2020-10-25] MEDS ORDERED: MAGNESIUM HYDROXIDE (MOM) ORAL LIQD UDC PO PRN (12:51)
[2020-10-25] MEDS ORDERED: PROMETHAZINE 25 MG RECT SUPP PR PRN (12:51)
[2020-10-25] MEDS ORDERED: KETOROLAC 30 MG/1 ML INJ IV PRN (12:51)
[2020-10-25] MEDS ORDERED: FAMOTIDINE 10 MG TAB PO PRN (12:57)
[2020-10-25] MEDS ORDERED: ALBUTEROL 8.5 GM MDI INHALATION IH PRN (12:57)
[2020-10-25] MEDS: HYDROmorphone 1 MG/1 ML INJ IV PRN ×2 (13:00→13:20)
[2020-10-25] MEDS ORDERED: MORPHINE 2 MG/1 ML INJ IV PRN (13:01)
[2020-10-25] MEDS ORDERED: ALBUTEROL 2.5 MG/3 ML NEBU IH PRN (13:28)
--- NOTE | 2020-10-25 13:42 | XRay Report ---
XR pelvis 1-2V INDICATION / CLINICAL INFORMATION: postop. COMPARISON: None available. FINDINGS: Post operative changes from left total hip arthroplasty. No retained foreign body. Hardware is intact . No abnormal lucency surrounds hardware. Normal alignment. No acute fracture. Impression: 1. Expected postoperative changes. Signer Name: Ramiro March MD Signed: 10/25/2020 1:37 PM Workstation Name: [id number]
--- NOTE | 2020-10-25 14:37 | Post Anesthesia Evaluation ---
- Post Anesthesia Evaluation Patient Participated: Yes Airway Patent: Yes Stable Respiratory Function: Yes Nausea/Vomiting: No Temp > 96.8F: Yes Pain Manageable: Yes Adequeate Hydration: Yes Anesthesia Complications: No
[2020-10-25] MEDS: GABAPENTIN 300 MG CAP PO SCH ×2 (15:48→21:56)
[2020-10-25] MEDS: MELATONIN 5 MG TAB PO SCH (21:56)
[2020-10-25] MEDS: BACLOFEN 10 MG TAB PO SCH (21:56)
[2020-10-25] MEDS: CELECOXIB 200 MG CAP PO SCH (21:56)
[2020-10-25] MEDS ORDERED: PYRIDOXINE PO SCH (22:00)
[2020-10-25] MEDS ORDERED: DIROXIMEL FUMARATE 231 MG PO SCH (22:00)
[2020-10-25] MEDS ORDERED: MELATONIN PO SCH (22:00)
[2020-10-26] MEDS: GABAPENTIN 300 MG CAP PO SCH ×3 (05:44→21:57)
--- NOTE | 2020-10-26 07:50 | Consultation ---
History of Present Illness - Reason for Consult Consult date: 10/25/20 Medical management Requesting physician: YOCASTA OBANDO - History of Present Illness S/p left hip replacement postop patient doing well. No complications. Past History Past Medical History: arthritis, hypertension, hyperlipidemia, other (Peripheral neuropathy, depression, ADD.) Past Surgical History: total hip replacement Social history: lives with family, full code Family history: hypertension Medications and Allergies Allergies Allergy/AdvReac Type Severity Reaction Status Date / Time No Known Allergies Allergy Verified 08/02/13 10:02 Home Medications Medication Instructions Recorded Confirmed Last Taken Type FLUoxetine HCL [PROzac] 40 mg PO DAILY 06/24/13 10/12/20 10/25/20 05:00 History Famotidine [Pepcid] 20 mg PO PRN PRN 06/24/13 10/12/20 10/24/20 History Pantoprazole [Protonix TAB] 40 mg PO QDAY 06/24/13 10/12/20 10/24/20 History Potassium Chloride 10 meq PO QDAY 06/24/13 10/12/20 10/24/20 History hydroCHLOROthiazide [HCTZ] 25 mg PO QDAY 06/24/13 10/12/20 10/24/20 History lisinopriL [Zestril TAB] 10 mg PO QDAY 06/24/13 10/12/20 10/24/20 History metFORMIN [Glucophage] 500 mg PO DAILY 06/24/13 10/12/20 10/24/20 History Ascorbate Calcium [Vitamin C] 1,000 mg PO DAILY 03/08/15 10/12/20 10/24/20 History Melatonin/Pyridoxine [Melatonin 5 10 mg PO QHS 03/08/15 10/12/20 10/24/20 History mg Tablet] Multivitamin [Daily Multiple 1 tab PO DAILY 03/08/15 10/12/20 10/24/20 History Vitamin] Albuterol Sulfate [Proventil Hfa] 2 puff IH PRN PRN 10/12/20 10/12/20 10/24/20 History AtorvaSTATin [Lipitor] 40 mg PO QHS 10/12/20 10/12/20 10/24/20 History Baclofen [Lioresal] 10 mg PO QHS 10/12/20 10/12/20 10/24/20 History Dextroamphetamine/Amphetamine 10 mg PO DAILY 10/12/20 10/12/20 10/24/20 History [Adderall 10 mg Tablet] Diroximel Fumarate [Vumerity] 2 tab PO BID 10/12/20 10/12/20 10/25/20 05:00 History Gabapentin [Neurontin] 300 mg PO Q8HR 10/12/20 10/12/20 10/25/20 05:00 History Meloxicam [Mobic] 15 mg PO DAILY 10/12/20 10/12/20 10/24/20 History buPROPion SR [Wellbutrin Sr] 150 mg PO QAM 10/12/20 10/12/20 10/25/20 05:00 History methocarbamoL [Methocarbamol] 750 mg PO PRN PRN 10/12/20 10/12/20 10/24/20 History traMADoL [Ultram] 50 mg PO PRN PRN 10/12/20 10/12/20 10/24/20 History Active Meds: Active Medications Hydrocodone Bitart/Acetaminophen (Hydrocodone/Acetaminophen 10-325mg Tab) 1 each PO Q4H PRN PRN Reason: Pain, Moderate (4-6) Albuterol (Albuterol 2.5 Mg/3 Ml Nebu) 2.5 mg IH Q4HRT PRN PRN Reason: Shortness Of Breath Ascorbic Acid (Ascorbic Acid 500 Mg Tab) 1,000 mg PO QDAY [facility] Atorvastatin Calcium (Atorvastatin 40 Mg Tab) 40 mg PO QHS [facility] Last Admin: 10/25/20 21:58 Dose: 40 mg Documented by: Baclofen (Baclofen 10 Mg Tab) 10 mg PO QHS [facility] Last Admin: 10/25/20 21:56 Dose: 10 mg Documented by: Bupropion HCl (Bupropion Sr 150 Mg Tab) 150 mg PO QAM [facility] Celecoxib (Celecoxib 200 Mg Cap) 200 mg PO BID [facility] Last Admin: 10/25/20 21:56 Dose: 200 mg Documented by: Fluoxetine HCl (Fluoxetine 20 Mg Cap) 40 mg PO QDAY [facility] Gabapentin (Gabapentin 300 Mg Cap) 300 mg PO Q8HR [facility] Last Admin: 10/26/20 05:44 Dose: 300 mg Documented by: Hydrochlorothiazide (Hydrochlorothiazide 25 Mg Tab) 25 mg PO QDAY [facility] Lisinopril (Lisinopril 10 Mg Tab) 10 mg PO QDAY [facility] Magnesium Hydroxide (Magnesium Hydroxide (Mom) Oral Liqd Udc) 30 ml PO Q4H PRN PRN Reason: Constipation Melatonin (Melatonin 5 Mg Tab) 5 mg PO QHS [facility] Last Admin: 10/25/20 21:56 Dose: 5 mg Documented by: Metformin HCl (Metformin 500 Mg Tab) 500 mg PO QAMDIAB [facility] Miscellaneous Medication (Dextroamphetamine/Amphetamine [Adderall 10 Mg Tablet]) 10 mg PO DAILY [facility] Miscellaneous Medication (Diroximel Fumarate [Vumerity]) 2 tab PO BID [facility] Morphine Sulfate (Morphine 2 Mg/1 Ml Inj) 2 mg IV Q4H PRN PRN Reason: Pain, Moderate (4-6) Ondansetron HCl (Ondansetron 4 Mg/2 Ml Inj) 4 mg IV Q8H PRN PRN Reason: Nausea And Vomiting Pantoprazole Sodium (Pantoprazole 40 Mg Tab) 40 mg PO QDAC [facility] Potassium Chloride (Potassium Chloride Er 10 Meq Tab) 10 meq PO QDAY [facility] Promethazine HCl (Promethazine 25 Mg Rect Supp) 25 mg [place] Q6H PRN PRN Reason: Nausea And Vomiting Sodium Chloride (Sodium Chloride 0.9% 10 Ml Flush Syringe) 10 ml IV PRN NR Stop: 10/26/20 12:59 Review of Systems All systems: negative Exam - Constitutional Vitals: Temp Pulse Resp BP Pulse Ox 97.8 F 60 20 123/71 95 10/26/20 04:27 10/26/20 04:27 10/26/20 04:27 10/26/20 04:27 10/26/20 04:27 General appearance: Present: no acute distress, well-nourished - EENT Eyes: Present: PERRL ENT: hearing intact, clear oral mucosa - Neck Neck: Present: supple, normal ROM - Respiratory Respiratory effort: normal Respiratory: bilateral: CTA - Cardiovascular Heart rate: 78 Rhythm: regular Heart Sounds: Present: S1 & S2. Absent: rub, click - Extremities Extremities: pulses symmetrical, No edema, abnormal (Decreased range of motion of the left hip, status post left hip replacement) Peripheral Pulses: within normal limits - Abdominal General gastrointestinal: Present: soft, non-tender, non-distended, normal bowel sounds Female genitourinary: Present: normal - Integumentary Integumentary: Present: clear, warm, dry - Musculoskeletal Musculoskeletal: gait normal, strength equal bilaterally - Psychiatric Psychiatric: appropriate mood/affect, intact judgment & insight - Neurologic Neurologic: CNII-XII intact, moves all extremities Results - Labs CBC & Chem 7: 10/16/20 14:45 10/16/20 14:45 Labs: Abnormal lab results 10/25/20 10/25/20 Range/Units 13:01 21:09 POC Glucose 115 H 145 H (70-105) mg/dL Assessment and Plan - Patient Problems (1) History of arthroplasty of left hip Current Visit: Yes Status: Acute Plan to address problem: Postop patient doing well PT and OT to continue Pain management as necessary (2) Hypertension Current Visit: Yes Status: Chronic Qualifiers: Hypertension type: essential hypertension Qualified Code(s): I10 - Esse ntial (primary) hypertension Plan to address problem: Continue antihypertensives and adjust medications (3) Hyponatremia Current Visit: Yes Status: Acute Plan to address problem: Mild secondary to diuretics IV normal saline We will hold the hydrochlorothiazide and potassium (4) ADD (attention deficit disorder) Current Visit: Yes Status: Chronic Qualifiers: Hyperactivity presence: present Plan to address problem: Continue Adderall (5) Depression Current Visit: Yes Status: Chronic Qualifiers: Depression Type: unspecified Qualified Code(s): F32.9 - Major depressive disorder, single episode, unspecified Plan to address problem: Continue fluoxetine (6) DVT prophylaxis Current Visit: Yes Status: Acute Plan to address problem: On SCDs and GI prophylaxis
[2020-10-26] MEDS: metFORMIN 500 MG TAB PO SCH (08:45)
[2020-10-26] MEDS: ASCORBIC ACID 500 MG TAB PO SCH ×2 (08:45→11:41)
[2020-10-26] MEDS: buPROPion SR 150 MG TAB PO SCH ×2 (08:45→11:41)
[2020-10-26] MEDS: PANTOPRAZOLE 40 MG TAB PO SCH (08:45)
[2020-10-26] MEDS: FLUoxetine 20 MG CAP PO SCH ×2 (08:45→11:41)
[2020-10-26] MEDS: hydroCHLOROthiazide 25 MG TAB PO SCH ×3 (08:45→13:37)
[2020-10-26] MEDS: LISINOPRIL 10 MG TAB PO SCH ×3 (08:45→13:37)
[2020-10-26] MEDS: CELECOXIB 200 MG CAP PO SCH ×3 (08:46→21:55)
--- NOTE | 2020-10-26 09:51 | Progress Note ---
Assessment and Plan Assessment and plan: --s/p left hip arthroplasty; Postop care per orthopedic Pain management, PT OT DC planning per case management when stable --Hypertension; moderate control Continue current antihypertensives and as needed medications --History of depression; Continue antidepression medications --History of ADD; Continue Adderall --Type 2 diabetes mellitus; Accu-Chek sliding scale coverage ADA diet Oral hypoglycemics ,insulin as needed --Dyslipidemia; continue statin --Obesity; BMI 38.3 Patient may need weight reduction when medically stable --DVT prophylaxis; patient postop state Anticoagulation deferred to orthopedics Closely monitor the patient and adjust the management as needed Plan of care reviewed with the patient and her nurse History Interval history: I have seen and examined the patient at the bedside Patient's chart and medications reviewed Complains of pain at the surgical site Physical therapist is beginning to evaluate Vital signs noted Hospitalist Physical - Constitutional Vitals: Temp Pulse Resp BP Pulse Ox 98.4 F 60 18 110/65 97 10/26/20 08:02 10/26/20 08:02 10/26/20 08:02 10/26/20 08:02 10/26/20 08:02 General appearance: Present: no acute distress, well-nourished, obese - EENT Eyes: Present: PERRL, EOM intact - Neck Neck: Present: supple, normal ROM - Respiratory Respiratory effort: normal Respiratory: bilateral: diminished, negative: rales, rhonchi, wheezing - Cardiovascular Rhythm: regular Heart Sounds: Present: S1 & S2 - Extremities Extremities: no ischemia, abnormal (Postop changes) - Abdominal General gastrointestinal: soft, non-tender, non-distended, normal bowel sounds - Integumentary Integumentary: Present: clear, warm - Psychiatric Psychiatric: appropriate mood/affect, cooperative - Neurologic Neurologic: CNII-XII intact, moves all extremities Results - Labs CBC & Chem 7: 10/16/20 14:45 10/26/20 14:10 Labs: Laboratory Last Values WBC 8.4 K/mm3 (4.5-11.0) 10/16/20 14:45 RBC 4.10 M/mm3 (3.65-5.03) 10/16/20 14:45 Hgb 12.7 gm/dl (10.1-14.3) 10/16/20 14:45 Hct 37.2 % (30.3-42.9) 10/16/20 14:45 MCV 91 fl (79-97) 10/16/20 14:45 MCH 31 pg (28-32) 10/16/20 14:45 MCHC 34 % (30-34) 10/16/20 14:45 RDW 16.7 % (13.2-15.2) H 10/16/20 14:45 Plt Count 261 K/mm3 (140-440) 10/16/20 14:45 Lymph % (Auto) 16.4 % (13.4-35.0) 10/16/20 14:45 [place] % (Auto) 7.5 % (0.0-7.3) H 10/16/20 14:45 Eos % (Auto) 3.1 % (0.0-4.3) 10/16/20 14:45 Baso % (Auto) 1.0 % (0.0-1.8) 10/16/20 14:45 Lymph # (Auto) 1.4 K/mm3 (1.2-5.4) 10/16/20 14:45 [place] # (Auto) 0.6 K/mm3 (0.0-0.8) 10/16/20 14:45 Eos # (Auto) 0.3 K/mm3 (0.0-0.4) 10/16/20 14:45 Baso # (Auto) 0.1 K/mm3 (0.0-0.1) 10/16/20 14:45 Seg Neutrophils % 72.0 % (40.0-70.0) H 10/16/20 14:45 Seg Neutrophils # 6.0 K/mm3 (1.8-7.7) 10/16/20 14:45 PT 12.9 Sec. (12.2-14.9) 10/16/20 14:45 INR 0.98 (0.87-1.13) 10/16/20 14:45 APTT 30.9 Sec. (24.2-36.6) 10/16/20 14:45 Sodium 135 mmol/L (137-145) L 10/16/20 14:45 Potassium 4.1 mmol/L (3.6-5.0) 10/16/20 14:45 Chloride 100.0 mmol/L (98-107) 10/16/20 14:45 Carbon Dioxide 24 mmol/L (22-30) 10/16/20 14:45 Anion Gap 15 mmol/L 10/16/20 14:45 BUN 26 mg/dL (7-17) H 10/16/20 14:45 Creatinine 1.1 mg/dL (0.6-1.2) 10/16/20 14:45 Estimated GFR 51 ml/min 10/16/20 14:45 BUN/Creatinine Ratio 24 % 10/16/20 14:45 Glucose 106 mg/dL (65-100) H 10/16/20 14:45 POC Glucose 145 mg/dL (70-105) H 10/25/20 21:09 Calcium 10.0 mg/dL (8.4-10.2) 10/16/20 14:45 Total Bilirubin 0.20 mg/dL (0.1-1.2) 10/16/20 14:45 AST 16 units/L (5-40) 10/16/20 14:45 ALT 14 units/L (7-56) 10/16/20 14:45 Alkaline Phosphatase 140 units/L (35-129) H 10/16/20 14:45 Total Protein 7.2 g/dL (6.3-8.2) 10/16/20 14:45 Albumin 4.2 g/dL (3.9-5) 10/16/20 14:45 Albumin/Globulin Ratio 1.4 % 10/16/20 14:45 HCG, Qual Negative (Negative) 10/16/20 14:45 Urine Color Eufemia (Yellow) 10/22/20 10:20 Urine Turbidity Slightly-cloudy (Clear) 10/22/20 10:20 Urine pH 5.0 (5.0-7.0) 10/22/20 10:20 Ur Specific [place] 1.021 (1.003-1.030) 10/22/20 10:20 Urine Protein <15 mg/dl mg/dL (Negative) 10/22/20 10:20 Urine Glucose (UA) Neg mg/dL (Negative) 10/22/20 10:20 Urine Ketones Neg mg/dL (Negative) 10/22/20 10:20 Urine Blood Neg (Negative) 10/22/20 10:20 Urine Nitrite Neg (Negative) 10/22/20 10:20 Urine Bilirubin Neg (Negative) 10/22/20 10:20 Urine Urobilinogen < 2.0 mg/dL (<2.0) 10/22/20 10:20 Ur Leukocyte Esterase Tr (Negative) 10/22/20 10:20 Urine WBC (Auto) 4.0 /HPF (0.0-6.0) 10/22/20 10:20 Urine RBC (Auto) 1.0 /HPF (0.0-6.0) 10/22/20 10:20 U Epithel Cells (Auto) 1.0 /HPF (0-13.0) 10/22/20 10:20 Urine Bacteria (Auto) 1+ /HPF (Negative) 10/22/20 10:20 Hyaline Casts 1 /LPF 10/16/20 14:45 Urine Mucus Few /HPF 10/22/20 10:20 Nasal Screen MRSA (PCR) Negative (Negative) 10/12/20 11:35 Nasal Screen MRSA (PCR) Negative (Negative) 10/12/20 11:35 Coronavirus (PCR) Negative (Negative) 10/16/20 14:30 Blood Type O POSITIVE 10/25/20 06:55 Antibody Screen Negative 10/25/20 06:55 Med[place]/IV: Voiding Method External Female Catheter Active Medications - Current Medications Current Medications: Generic Name Dose Route Start Last Admin Trade Name Freq PRN Reason Stop Dose Admin Hydrocodone Bitart/Acetaminophen 1 each 10/25/20 13:01 Hydrocodone/Acetaminophen 10-325mg Tab PO Q4H PRN Pain, Moderate (4-6) Albuterol 2.5 mg 10/25/20 13:28 Albuterol 2.5 Mg/3 Ml Nebu IH Q4HRT PRN Shortness Of Breath Ascorbic Acid 1,000 mg 10/26/20 10:00 10/26/20 08:45 Ascorbic Acid 500 Mg Tab PO 1,000 mg QDAY [facility] Administration Atorvastatin Calcium 40 mg 10/25/20 22:00 10/25/20 21:58 Atorvastatin 40 Mg Tab PO 40 mg QHS [facility] Administration Baclofen 10 mg 10/25/20 22:00 10/25/20 21:56 Baclofen 10 Mg Tab PO 10 mg QHS [facility] Administration Bupropion HCl 150 mg 10/26/20 10:00 10/26/20 08:45 Bupropion Sr 150 Mg Tab PO 150 mg QAM [facility] Administration Celecoxib 200 mg 10/25/20 22:00 10/26/20 08:46 Celecoxib 200 Mg Cap PO 200 mg BID [facility] Administration Fluoxetine HCl 40 mg 10/26/20 10:00 10/26/20 08:45 Fluoxetine 20 Mg Cap PO 40 mg QDAY [facility] Administration Gabapentin 300 mg 10/25/20 14:00 10/26/20 05:44 Gabapentin 300 Mg Cap PO 300 mg Q8HR [facility] Administration Hydrochlorothiazide 25 mg 10/26/20 10:00 10/26/20 08:45 Hydrochlorothiazide 25 Mg Tab PO 25 mg QDAY [facility] Administration Lisinopril 10 mg 10/26/20 10:00 10/26/20 08:45 Lisinopril 10 Mg Tab PO 10 mg QDAY [facility] Administration Magnesium Hydroxide 30 ml 10/25/20 12:51 Magnesium Hydroxide (Mom) Oral Liqd Udc PO Q4H PRN Constipation Melatonin 5 mg 10/25/20 22:00 10/25/20 21:56 Melatonin 5 Mg Tab PO 5 mg QHS [facility] Administration Metformin HCl 500 mg 10/26/20 08:00 10/26/20 08:45 Metformin 500 Mg Tab PO 500 mg QAMDIAB [facility] Administration Miscellaneous Medication 10 mg 10/26/20 10:00 Dextroamphetamine/Amphetamine [Adderall 10 Mg Tablet] PO DAILY [facility] Miscellaneous Medication 2 tab 10/25/20 22:00 Diroximel Fumarate [Vumerity] PO BID [facility] Morphine Sulfate 2 mg 10/25/20 13:01 Morphine 2 Mg/1 Ml Inj IV Q4H PRN Pain, Moderate (4-6) Ondansetron HCl 4 mg 10/25/20 12:51 Ondansetron 4 Mg/2 Ml Inj IV Q8H PRN Nausea And Vomiting Pantoprazole Sodium 40 mg 10/26/20 07:30 10/26/20 08:45 Pantoprazole 40 Mg Tab PO 40 mg QDAC [facility] Administration Potassium Chloride 10 meq 10/26/20 10:00 Potassium Chloride Er 10 Meq Tab PO QDAY [facility] Promethazine HCl 25 mg 10/25/20 12:51 Promethazine 25 Mg Rect Supp [place] Q6H PRN Nausea And Vomiting Sodium Chloride 10 ml 10/25/20 13:00 Sodium Chloride 0.9% 10 Ml Flush Syringe IV 10/26/20 12:59 PRN NR
[2020-10-26] MEDS ORDERED: ASCORBATE CALCIUM 500 MG PO SCH (10:00)
[2020-10-26] MEDS ORDERED: POTASSIUM CHLORIDE 10 MEQ PO SCH (10:00)
[2020-10-26] MEDS ORDERED: AMPHETAMINE PO SCH (10:00)
[2020-10-26] MEDS ORDERED: DEXTROAMPHETAMINE PO SCH (10:00)
[2020-10-26] MEDS ORDERED: LISINOPRIL 5 MG TAB PO SCH (10:00)
[2020-10-26] MEDS ORDERED: NON-FORMULARY EACH (Fluoxetine Hcl [Prozac] 40 MG Capsule) PO SCH (10:00)
[2020-10-26] MEDS: INSULIN LISPRO 100 UNIT/ML SUB-Q SCH ×3 (13:13→22:00)
[2020-10-26] MEDS: POTASSIUM CHLORIDE ER 10 MEQ TAB PO SCH (13:34)
[2020-10-26 14:45] LABS: Calcium 8.9 mg/dL (8.4-10.2)
[2020-10-26] MEDS: HYDROcodone/ACETAMINOPHEN 10-325MG TAB PO PRN ×2 (15:53→22:00)
[2020-10-26] MEDS ORDERED: APIXABAN 2.5 MG TAB PO SCH (17:03)
--- NOTE | 2020-10-26 17:14 | Progress Note ---
Subjective Date of service: 10/26/20 Interval history: POD1, status [post Left NIRU, doing well. pain unde control, Noticed skin tears from adhesive,looks very benign, no signs of infection. Calf soft NT. NVI Dressing dry. very small skin blister back of knee which was padde and Elevated off the bed sheet Hip precuations reviewed with patient and . Ice pacs Dvt Prophylaxsis. Pain control DC with NIRU instructions and ASA script 325 mg BID for 6 weeks, once HH arrangemnts made and once cleared by Medicine/ Objective Vital signs: Vital Signs - 12hr 10/26/20 10/26/20 10/26/20 08:02 09:40 12:00 Temperature 98.4 F 98.3 F Pulse Rate 60 67 Respiratory 18 18 Rate Blood Pressure 110/65 Blood Pressure 102/50 [Right] O2 Sat by Pulse 97 94 96 Oximetry 10/26/20 16:23 Temperature 98.1 F Pulse Rate 79 Respiratory 18 Rate Blood Pressure 102/51 Blood Pressure [Right] O2 Sat by Pulse 94 Oximetry - Labs CBC & BMP: 10/16/20 14:45 10/26/20 14:10 Labs: Abnormal lab results 10/25/20 10/26/20 10/26/20 Range/Units 21:09 11:46 14:10 BUN 32 H (7-17) mg/dL Creatinine 1.5 H (0.6-1.2) mg/dL Glucose 134 H (65-100) mg/dL POC Glucose 145 H 119 H (70-105) mg/dL
--- NOTE | 2020-10-26 17:16 | Post Anesthesia Evaluation ---
- Post Anesthesia Evaluation Patient Participated: Yes Airway Patent: Yes Stable Respiratory Function: Yes Nausea/Vomiting: No Temp > 96.8F: Yes Pain Manageable: Yes Adequeate Hydration: Yes Anesthesia Complications: No Other Comments: POD1 s/p hip replacement under [place]. Pain well controlled, has not received IV pain medication since d/c from PACU and received first dose PO opioids this afternoon. No nausea. Reports some weakness in the nonoperative leg which was present prior to surgery but is slightly worse. Participated in PT and anticipates d/c today or tomorrow. No anesthetic questions or concerns.
[2020-10-26] MEDS: ASPIRIN EC 325 MG TAB PO SCH ×2 (17:26→21:56)
[2020-10-26] MEDS: BACLOFEN 10 MG TAB PO SCH (21:58)
[2020-10-26] MEDS: MELATONIN 5 MG TAB PO SCH (21:58)
[2020-10-26] MEDS: DIROXIMEL FUMARATE 231 MG PO SCH (21:59)
[2020-10-26] MEDS ORDERED: ASPIRIN EC 325 MG TAB PO SCH (22:00)
[2020-10-27] MEDS: GABAPENTIN 300 MG CAP PO SCH (06:09)
[2020-10-27] MEDS: buPROPion SR 150 MG TAB PO SCH (09:23)
[2020-10-27] MEDS: DIROXIMEL FUMARATE 231 MG PO SCH (09:23)
[2020-10-27] MEDS: PANTOPRAZOLE 40 MG TAB PO SCH (09:24)
[2020-10-27] MEDS: metFORMIN 500 MG TAB PO SCH (09:24)
[2020-10-27] MEDS: CELECOXIB 200 MG CAP PO SCH (09:24)
[2020-10-27] MEDS: ASCORBIC ACID 500 MG TAB PO SCH (09:24)
[2020-10-27] MEDS: FLUoxetine 20 MG CAP PO SCH (09:24)
[2020-10-27] MEDS: INSULIN LISPRO 100 UNIT/ML SUB-Q SCH ×2 (09:25→11:37)
[2020-10-27] MEDS: ASPIRIN EC 325 MG TAB PO SCH (09:25)
[2020-10-27 11:36] VITALS: BP 104/56
[2020-10-27] MEDS: hydroCHLOROthiazide 25 MG TAB PO SCH (11:36)
[2020-10-27] MEDS: POTASSIUM CHLORIDE ER 10 MEQ TAB PO SCH (11:36)
[2020-10-27] MEDS: LISINOPRIL 10 MG TAB PO SCH (11:37)
--- NOTE | 2020-10-27 12:57 | Progress Note ---
Assessment and Plan Assessment and plan: --s/p left hip arthroplasty; Patient received appropriate postop care per orthopedic Pain significantly improved, PT OT evaluation noted Recommend home health, case management is setting up Orthopedic surgeon cleared for discharge today --Hypertension; moderate control Patient will continue current antihypertensives Will follow with primary care physician upon discharge --History of depression; Continue antidepression medications --History of ADD; Continue Adderall --Type 2 diabetes mellitus; Accu-Chek sliding scale coverage ADA diet Oral hypoglycemics ,insulin as needed --Dyslipidemia; continue statin --Obesity; BMI 38.3 Patient may need weight reduction when medically stable --DVT prophylaxis; aspirin 325 mg p.o. twice daily[per Ortho] Closely monitor the patient and adjust the management as needed Patient will be discharged today as recommended by orthopedic surgeon Dr. Lezama And is stable at discharge, pain medications, aspirin 325 p.o. twice a day for 6 weeks for DVT prophylaxis Prescriptions are given Thank you for this consultation We will sign off History Interval history: I have seen and examined the patient at the bedside Patient's chart and medications reviewed Patient feels better tolerated physical therapy Orthopedic surgeon informed the patient as well as the nurse That patient can be discharged home today if stable Patient alert awake oriented x3 Vital signs reviewed Hospitalist Physical - Constitutional Vitals: Temp Pulse Resp BP Pulse Ox 98.2 F 66 18 104/56 96 10/27/20 11:25 10/27/20 11:25 10/27/20 11:25 10/27/20 11:25 10/27/20 11:25 General appearance: Present: no acute distress, well-nourished, obese - EENT Eyes: Present: PERRL, EOM intact - Neck Neck: Present: supple, normal ROM - Respiratory Respiratory effort: normal Respiratory: bilateral: diminished, negative: rales, rhonchi, wheezing - Cardiovascular Rhythm: regular Heart Sounds: Present: S1 & S2 - Extremities Extremities: no ischemia, abnormal (Postop changes) - Abdominal General gastrointestinal: soft, non-tender, non-distended, normal bowel sounds - Integumentary Integumentary: Present: clear, warm - Psychiatric Psychiatric: appropriate mood/affect, cooperative - Neurologic Neurologic: CNII-XII intact, moves all extremities Results - Labs CBC & Chem 7: 10/16/20 14:45 10/26/20 14:10 Labs: Laboratory Last Values WBC 8.4 K/mm3 (4.5-11.0) 10/16/20 14:45 RBC 4.10 M/mm3 (3.65-5.03) 10/16/20 14:45 Hgb 12.7 gm/dl (10.1-14.3) 10/16/20 14:45 Hct 37.2 % (30.3-42.9) 10/16/20 14:45 MCV 91 fl (79-97) 10/16/20 14:45 MCH 31 pg (28-32) 10/16/20 14:45 MCHC 34 % (30-34) 10/16/20 14:45 RDW 16.7 % (13.2-15.2) H 10/16/20 14:45 Plt Count 261 K/mm3 (140-440) 10/16/20 14:45 Lymph % (Auto) 16.4 % (13.4-35.0) 10/16/20 14:45 Ralls % (Auto) 7.5 % (0.0-7.3) H 10/16/20 14:45 Eos % (Auto) 3.1 % (0.0-4.3) 10/16/20 14:45 Baso % (Auto) 1.0 % (0.0-1.8) 10/16/20 14:45 Lymph # (Auto) 1.4 K/mm3 (1.2-5.4) 10/16/20 14:45 Ralls # (Auto) 0.6 K/mm3 (0.0-0.8) 10/16/20 14:45 Eos # (Auto) 0.3 K/mm3 (0.0-0.4) 10/16/20 14:45 Baso # (Auto) 0.1 K/mm3 (0.0-0.1) 10/16/20 14:45 Seg Neutrophils % 72.0 % (40.0-70.0) H 10/16/20 14:45 Seg Neutrophils # 6.0 K/mm3 (1.8-7.7) 10/16/20 14:45 PT 12.9 Sec. (12.2-14.9) 10/16/20 14:45 INR 0.98 (0.87-1.13) 10/16/20 14:45 APTT 30.9 Sec. (24.2-36.6) 10/16/20 14:45 Sodium 137 mmol/L (137-145) 10/26/20 14:10 Potassium 4.3 mmol/L (3.6-5.0) 10/26/20 14:10 Chloride 105.1 mmol/L (98-107) 10/26/20 14:10 Carbon Dioxide 22 mmol/L (22-30) 10/26/20 14:10 Anion Gap 14 mmol/L 10/26/20 14:10 BUN 32 mg/dL (7-17) H 10/26/20 14:10 Creatinine 1.5 mg/dL (0.6-1.2) H 10/26/20 14:10 Estimated GFR 36 ml/min 10/26/20 14:10 BUN/Creatinine Ratio 21 % 10/26/20 14:10 Glucose 134 mg/dL (65-100) H 10/26/20 14:10 POC Glucose 102 mg/dL (70-105) 10/27/20 11:02 Calcium 8.9 mg/dL (8.4-10.2) 10/26/20 14:10 Total Bilirubin 0.20 mg/dL (0.1-1.2) 10/16/20 14:45 AST 16 units/L (5-40) 10/16/20 14:45 ALT 14 units/L (7-56) 10/16/20 14:45 Alkaline Phosphatase 140 units/L (35-129) H 10/16/20 14:45 Total Protein 7.2 g/dL (6.3-8.2) 10/16/20 14:45 Albumin 4.2 g/dL (3.9-5) 10/16/20 14:45 Albumin/Globulin Ratio 1.4 % 10/16/20 14:45 HCG, Qual Negative (Negative) 10/16/20 14:45 Urine Color Eufemia (Yellow) 10/22/20 10:20 Urine Turbidity Slightly-cloudy (Clear) 10/22/20 10:20 Urine pH 5.0 (5.0-7.0) 10/22/20 10:20 Ur Specific [place] 1.021 (1.003-1.030) 10/22/20 10:20 Urine Protein <15 mg/dl mg/dL (Negative) 10/22/20 10:20 Urine Glucose (UA) Neg mg/dL (Negative) 10/22/20 10:20 Urine Ketones Neg mg/dL (Negative) 10/22/20 10:20 Urine Blood Neg (Negative) 10/22/20 10:20 Urine Nitrite Neg (Negative) 10/22/20 10:20 Urine Bilirubin Neg (Negative) 10/22/20 10:20 Urine Urobilinogen < 2.0 mg/dL (<2.0) 10/22/20 10:20 Ur Leukocyte Esterase Tr (Negative) 10/22/20 10:20 Urine WBC (Auto) 4.0 /HPF (0.0-6.0) 10/22/20 10:20 Urine RBC (Auto) 1.0 /HPF (0.0-6.0) 10/22/20 10:20 U Epithel Cells (Auto) 1.0 /HPF (0-13.0) 10/22/20 10:20 Urine Bacteria (Auto) 1+ /HPF (Negative) 10/22/20 10:20 Hyaline Casts 1 /LPF 10/16/20 14:45 Urine Mucus Few /HPF 10/22/20 10:20 Nasal Screen MRSA (PCR) Negative (Negative) 10/12/20 11:35 Nasal Screen MRSA (PCR) Negative (Negative) 10/12/20 11:35 Coronavirus (PCR) Negative (Negative) 10/16/20 14:30 Blood Type O POSITIVE 10/25/20 06:55 Antibody Screen Negative 10/25/20 06:55 Medrano/IV: Voiding Method Toilet Active Medications - Current Medications Current Medications: Generic Name Dose Route Start Last Admin Trade Name Freq PRN Reason Stop Dose Admin Hydrocodone Bitart/Acetaminophen 1 each 10/25/20 13:01 10/26/20 22:00 Hydrocodone/Acetaminophen 10-325mg Tab PO 1 each Q4H PRN Administration Pain, Moderate (4-6) Albuterol 2.5 mg 10/25/20 13:28 Albuterol 2.5 Mg/3 Ml Nebu IH Q4HRT PRN Shortness Of Breath Ascorbic Acid 1,000 mg 10/26/20 10:00 10/27/20 09:24 Ascorbic Acid 500 Mg Tab PO 1,000 mg QDAY SAIDA Administration Aspirin 325 mg 10/26/20 17:19 10/27/20 09:25 Aspirin Ec 325 Mg Tab PO 325 mg BID SAIDA Administration Atorvastatin Calcium 40 mg 10/25/20 22:00 10/26/20 21:58 Atorvastatin 40 Mg Tab PO 40 mg QHS SAIDA Administration Baclofen 10 mg 10/25/20 22:00 10/26/20 21:58 Baclofen 10 Mg Tab PO 10 mg QHS SAIDA Administration Bupropion HCl 150 mg 10/26/20 10:00 10/27/20 09:23 Bupropion Sr 150 Mg Tab PO 150 mg QAM SAIDA Administration Celecoxib 200 mg 10/25/20 22:00 10/27/20 09:24 Celecoxib 200 Mg Cap PO 200 mg BID SAIDA Administration Fluoxetine HCl 40 mg 10/26/20 10:00 10/27/20 09:24 Fluoxetine 20 Mg Cap PO 40 mg [facility] Administration Gabapentin 300 mg 10/25/20 14:00 10/27/20 06:09 Gabapentin 300 Mg Cap PO 300 mg [facility]8HR [facility] Administration Hydrochlorothiazide 25 mg 10/26/20 10:00 10/27/20 11:36 Hydrochlorothiazide 25 Mg Tab PO Not Given [facility] Insulin Human Lispro 0 unit 10/26/20 11:30 10/27/20 11:37 Insulin Lispro 100 Unit/Ml SUB-Q Not [facility] Protocol Lisinopril 10 mg 10/26/20 10:00 10/27/20 11:37 Lisinopril 10 Mg Tab PO Not Given [facility] Magnesium Hydroxide 30 ml 10/25/20 12:51 Magnesium Hydroxide (Mom) Oral Liqd Udc PO Q4H PRN Constipation Melatonin 5 mg 10/25/20 22:00 10/26/20 21:58 Melatonin 5 Mg Tab PO 5 mg [facility]HS [facility] Administration Metformin HCl 500 mg 10/26/20 08:00 10/27/20 09:24 Metformin 500 Mg Tab PO 500 mg [facility] Administration Miscellaneous Medication 10 mg 10/26/20 10:00 Dextroamphetamine/Amphetamine [Adderall 10 Mg Tablet] PO DAILY [facility] Morphine Sulfate 2 mg 10/25/20 13:01 Morphine 2 Mg/1 Ml Inj IV Q4H PRN Pain, Moderate (4-6) Ondansetron HCl 4 mg 10/25/20 12:51 Ondansetron 4 Mg/2 Ml Inj IV Q8H PRN Nausea And Vomiting Pantoprazole Sodium 40 mg 10/26/20 07:30 10/27/20 09:24 Pantoprazole 40 Mg Tab PO 40 mg QDAC SAIDA Administration Potassium Chloride 10 meq 10/26/20 10:00 10/27/20 11:36 Potassium Chloride Er 10 Meq Tab PO Not Given QDAY SAIDA Promethazine HCl 25 mg 10/25/20 12:51 Promethazine 25 Mg Rect Supp CA Q6H PRN Nausea And Vomiting
--- NOTE | 2020-11-06 23:18 | Operative Report ---
AGE: 59. SEX: Female. PREOPERATIVE DIAGNOSES: Severe advanced osteoarthritis of the left hip joint. POSTOPERATIVE DIAGNOSES: 1. Severe advanced osteoarthritis, left hip joint. 2. Stiff left hip joint. PROCEDURES PERFORMED: 1. Left total hip replacement. 2. Synovectomy, left hip joint. SURGEON: Francisco Lezama MD COMPLICATIONS: None. BLOOD LOSS: Approximately 100-150 mL. IMPLANTS USED: Biomet total hip replacement system. Acetabular component, 48 mm multi-hole OsseoTi cup with one 6.5 mm screw, 30 x 6.5 mm. Dual mobility bearing surface, 38 mm liner. Bearing is 38 x 28 mm. Femoral head, Biolox ceramic delta femoral head. Stem, 11 x 142 standard offset, type 1 taper stem. Femoral head, 28 mm -3 Biolox delta head. BRIEF HISTORY: The patient had a painful arthritic left hip, failed conservative treatment, opted to go for surgical intervention. Risks and benefits discussed, informed consent obtained, brought to the hospital for the above procedure. DETAILS OF THE OPERATIVE REPORT: The patient was taken to the operating room. After smooth anesthesia, all the bony prominences were carefully padded, placed in the right lateral decubitus position with the left side up. Axillary roll was placed. All the bony prominences were carefully padded. She was placed into position on a peg board. Left hip and left lower extremity were prepped and draped in sterile fashion. The patient was given 2 gram Ancef half an hour before the procedure. Posterolateral approach was made. About 15 cm longitudinal incision was made over the left hip, centered over the greater trochanter. Incision was carried down deep to subcutaneous tissue and tensor fascia exposed. Tensor fascia incised in the interval between gluteus sky and tensor fascia muscle. Necessary retractors were placed. The hip abductors were identified and retracted. Short external rotators were identified, tagged with #2 Ethibond sutures. They were taken off from the greater trochanter using Bovie. Posterior capsule exposed. Trapdoor based capsulotomy performed and tacked with 0 Ethibond sutures. Hip joint identified and dislocated. LTC measured. The lesser trochanter to center distance was measured, which was close to 63 mm. Femoral neck osteotomy was performed a centimeter above the lesser trochanter and templated preoperatively, about 13-14 mm. With tension, the femoral head was noticed to be fully arthritic with ring osteophytes. Bare bone was present. Attention was drawn on the acetabulum side. Anteroposterior inferior retractors placed. The labrum removed. Pulvinar was cleaned. Osteophytes present were removed. We started reaming with a size 44 reamer gradually increased size to size 47 reamer, which gave us ream for good hemispherical cup. The 48 cup size seemed to be a great fit. Inserted a 48 acetabular component in about 20-degree forward flexion and 40-degree abducted position. This was supplemented with one 6.5 mm screw. Trial liner was then placed. Attention was drawn on the femoral side. We started preparing for type 1 Taperloc stem as templated preoperatively with box osteotome, canal finder, and lateralizing reamer. We started broaching with a size 4 broach in about 15 degree anteverted position, gradually increased size to size #7 broach, which gave us good great stability to torque testing. We trialed with the regular bearing surface followed by a dual mobility bearing surface. The regular bearing surface was at 32 and a dual mobility bearing surface gave us much better stability. With -3 head and neck length, we had a LTC matched and knee and heel level matched. Leg lengths were even with -3 head. The dual mobility gave us a much better stable option given her body habitus as well. As discussed preoperatively, she preferred to have that as well. We decided to go with the dual mobility bearing surface. With the trial in place with dual mobility, she had flexed up to 130 degree. At 90-degree flexed and abducted position, we could internally rotate up to 80-90 degree. At 90-degree flexed and adducted position, we could internally rotate up to 70-80 degree as well. Full extension, full external rotation. No impingement, no dislocation. Trial components were removed, thoroughly washed the hip area with antibiotic-soaked normal saline followed by normal saline. Real liner was then impacted in place and well seated. Real stem was then inserted in about 15-degree anteverted position and well seated. Trunnion was cleaned, dried, and real drill bearing surface was then assembled on the back table and then was implanted into the trunnion after cleaning and drying it. It then reduced and moved through range of motion and found to be extremely stable. Thorough washing was performed with antibiotic-soaked normal saline followed by normal saline. Posterior capsule and short external rotators were tacked through drill holes made in the greater trochanter. Tensor fascia closed with 0 Vicryl sutures and a combination of 0 Vicryl and Ethibond sutures interrupted. Subcutaneous tissue was closed with 0 and 2-0 Vicryl interrupted sutures. The patient had about 3-to-4-inch fat layer, which was closed in layers as well. Skin was closed with Monocryl. Aquacel dressing done. Abduction pillow applied. The patient tolerated the procedure very well, shifted to recovery room in stable condition. Sponge and needle count was correct. JOB# [id number] ASIF/BLOSSOM
== END 2020-10-27 16:15 | disposition home health service (06) | DRG 469 ==
LOC: 3A 10-25 06:16 → 3B-SURG 10-25 13:06
PROVIDERS: ADMIT Orthopaedic Surgery; ATTEND Orthopaedic Surgery
PROC: 0SRB0J9 Replacement of Left Hip Joint with Synthetic Substitute, Cemented, Open Approach (ICD-10-PCS; principal; 2020-10-25)
PROC: 0SBB0ZZ Excision of Left Hip Joint, Open Approach (ICD-10-PCS; 2020-10-25)
DX: M16.12 Unilateral primary osteoarthritis, left hip (principal); N17.0 Acute kidney failure with tubular necrosis; E87.1 Hypo-osmolality and hyponatremia; J45.909 Unspecified asthma, uncomplicated; G35 Multiple sclerosis; Z20.822 Contact with and (suspected) exposure to COVID-19; I73.9 Peripheral vascular disease, unspecified; F32.9 Major depressive disorder, single episode, unspecified; K21.9 Gastro-esophageal reflux disease without esophagitis; E78.5 Hyperlipidemia, unspecified; G62.9 Polyneuropathy, unspecified; F98.8 Other specified behavioral and emotional disorders with onset usually occurring in childhood and adolescence; Z96.649 Presence of unspecified artificial hip joint; E66.9 Obesity, unspecified; Z87.442 Personal history of urinary calculi; Z82.49 Family history of ischemic heart disease and other diseases of the circulatory system; Z79.899 Other long term (current) drug therapy; Z79.891 Long term (current) use of opiate analgesic; Z79.01 Long term (current) use of anticoagulants; Z68.38 Body mass index [BMI] 38.0-38.9, adult
CPT/HCPCS: 36415; 72170; 80048; 80053; 81001; 82962; 84703; 85025; 85610; 85730; 86850; 86900; 86901; 87076; 87086; 87186; 87641; 88304; 88305; 88311; G0378; A4217; A9270-GY; C1776; J0690; J1100; J1170; J1885; J2250; J2270; J2405; J2704; J3010; J3475; J3490; J7120; U0003

== ENCOUNTER 2021-01-29 08:08 | Outpatient (CLI) | payer BC ==
[2021-01-29 09:00] LABS: Bacteria,Urine 2+ /HPF (Negative); Bilirubin,Urine NEG (Negative); Blood,Urine NEG (Negative); Color,Urine Yellow (Yellow); Mucus,Urine FEW /HPF; Protein,Urine <15 mg/dL mg/dL (Negative); Urobilinogen,Urine < 2.0 mg/dL (<2.0)
[2021-01-29 09:01] LABS: Calcium 9.3 mg/dL (8.4-10.2)
[2021-01-29 09:14] LABS: RBC,Urine < 1.0 /HPF (0.0-6.0)
== END 2021-01-29 08:09 | disposition home or self-care (01) ==
LOC: LAB 08:08
PROVIDERS: ATTEND Internal Medicine
DX: E87.6 Hypokalemia (principal); E11.9 Type 2 diabetes mellitus without complications; N39.0 Urinary tract infection, site not specified
CPT/HCPCS: 36415; 80048; 81001; 83036

== ENCOUNTER 2021-02-15 09:25 | Outpatient (CLI) | payer BC ==
[2021-02-15 11:09] LABS: Basophils # (Auto) 0.1 K/mm3 (0.0-0.1); Basophils % (Auto) 1.2 % (0.0-1.8); Eosinophils # (Auto) 0.2 K/mm3 (0.0-0.4); Hematocrit 35.2 % (30.3-42.9); Hemoglobin 11.6 gm/dl (10.1-14.3); Lymphocytes # (Auto) 0.9 K/mm3 (1.2-5.4); Lymphocytes % (Auto) 15.6 % (13.4-35.0); Mean Corpuscular HGB Conc 33 % (30-34); Mean Corpuscular Volume 89 fl (79-97); Monocytes # (Auto) 0.8 K/mm3 (0.0-0.8); Monocytes % (Auto) 13.6 % (0.0-7.3); Platelet Count 225 K/mm3 (140-440); Red Blood Count 3.94 M/mm3 (3.65-5.03); Red Cell Distribution Width 16.6 % (13.2-15.2)
[2021-02-15 11:23] LABS: Albumin 4.2 g/dL (3.9-5); Calcium 9.7 mg/dL (8.4-10.2)
== END 2021-02-15 09:26 | disposition home or self-care (01) ==
LOC: LAB 09:25
PROVIDERS: ATTEND Psychiatry & Neurology Neurology
DX: Z09 Encounter for follow-up examination after completed treatment for conditions other than malignant neoplasm (principal); Z79.899 Other long term (current) drug therapy
CPT/HCPCS: 36415; 80053; 85025

== ENCOUNTER 2021-05-03 11:52 | Outpatient (CLI) | payer BC ==
--- NOTE | 2021-05-03 17:28 | Mammography Report ---
DIGITAL SCREENING MAMMOGRAM WITH CAD, 05/03/2021 CLINICAL INFORMATION / INDICATION: Routine screening mammography. Z12.31 TECHNIQUE: Digital bilateral 2D mammography was obtained in the craniocaudal and mediolateral obliqu e projections. This examination was interpreted with the benefit of Computer-Aided Detection analysis . COMPARISON: 03/22/2020, 01/18/2019, 07/21/2018, 07/05/2018 FINDINGS: Breast Density: The breasts are heterogeneously dense, which may obscure small masses. No dominant mass, suspicious calcifications, or architectural distortion in either breast. Bilateral benign-appearing calcifications are unchanged. IMPRESSION: No mammographic evidence of malignancy. Follow up recommendation: Routine yearly BI-RADS Category 2: Benign. A "normal" or negative report should not discourage follow up or biopsy of a clinically significant f inding. A written summary of these findings will be mailed to the patient. The patient will be entered into a mammography reporting system which will generate a reminder letter for the patient's next appointmen t at the appropriate interval. The [employer] recommends yearly mammograms starting at age 40 and continuing as l esau as a woman is in good health. Breast MRI is recommended for women with an approximate 20-25% or greater lifetime risk of breast cancer, including women with a strong family history of breast or ova shahid cancer or who have been treated for Hodgkin's disease. Signer Name: Ed Echevarria MD Signed: 05/03/2021 5:23 PM Workstation Name: [email or web address]
== END 2021-05-03 11:53 | disposition home or self-care (01) ==
LOC: MAMMO 11:52
PROVIDERS: ATTEND Obstetrics & Gynecology
DX: Z12.31 Encounter for screening mammogram for malignant neoplasm of breast (principal)
CPT/HCPCS: 77067

== ENCOUNTER 2021-05-10 08:34 | Outpatient (CLI) | payer BC | END 2021-05-10 08:35 | disposition home or self-care (01) | LOC: LAB 08:34 | PROVIDERS: ATTEND Nurse Practitioner Women's Health | DX: Z13.89 Encounter for screening for other disorder (principal) | CPT/HCPCS: 36415; 82670; 83001 ==

== ENCOUNTER 2021-08-01 08:34 | Outpatient (CLI) | payer BC ==
[2021-08-01 09:55] LABS: Basophils # (Auto) 0.1 K/mm3 (0.0-0.1); Basophils % (Auto) 1.3 % (0.0-1.8); Eosinophils # (Auto) 0.2 K/mm3 (0.0-0.4); Eosinophils % (Auto) 3.7 % (0.0-4.3); Hematocrit 36.6 % (30.3-42.9); Lymphocytes # (Auto) 0.7 K/mm3 (1.2-5.4); Lymphocytes % (Auto) 13.4 % (13.4-35.0); Mean Corpuscular HGB Conc 33 % (30-34); Mean Corpuscular Volume 93 fl (79-97); Monocytes # (Auto) 0.7 K/mm3 (0.0-0.8); Monocytes % (Auto) 12.3 % (0.0-7.3); Platelet Count 194 K/mm3 (140-440); Red Blood Count 3.94 M/mm3 (3.65-5.03); Red Cell Distribution Width 15.7 % (13.2-15.2)
[2021-08-01 10:18] LABS: Albumin 4.1 g/dL (3.9-5); Calcium 9.6 mg/dL (8.4-10.2)
[2021-08-01 14:41] LABS: Hepatitis C Virus Antibody Non-Reactive (NonReactive)
--- NOTE | 2021-08-01 16:18 | Magnetic Resonance Report ---
. MR cervical spine wo/w con INDICATION / CLINICAL INFORMATION: 60 years Female; G35 MULTIPLE SCLEROSIS. TECHNIQUE: Multisequence, multiplanar images of the cervical spine were obtained. COMPARISON: None available. FINDINGS: CRANIOCERVICAL JUNCTION:No significant abnormality. ALIGNMENT: Straightening of the cervical spine seen, which may be related to patient positioning. VERTEBRAE:Grossly normal marrow signal and vertebral body height for age. VISUALIZED SPINAL CORD: No signs of cord edema or myelomalacia. INTERVERTEBRAL DISCS: Multilevel disc space narrowing and desiccation noted. [id number] ANALYSIS: C2-3: Minimal facet hypertrophy on the left. C3-4: Broad-based posterocentral disc protrusion. C4-5: Mild disc bulge. Right paracentral disc protrusion. Moderate foraminal narrowing bilaterally fr om uncinate facet hypertrophy. Findings could affect the C5 nerves. C5-6: Mild to moderate disc bulge. Moderate to marked foraminal narrowing left from uncinate facet hy pertrophy. Moderate foraminal narrowing seen on the right. Findings certainly could affect the left C 6 nerve. C6-7: Mild disc bulge. Moderate to marked foraminal narrowing on the left from uncinate hypertrophy a nd/or disc disease. Moderate on the right. There is encroachment upon the cervical cord without impin gement. Findings certainly could affect C7 nerves. C7-T1: Mild to moderate disc bulge. Marked foraminal narrowing on the right from uncinate and facet h ypertrophy. Moderate on the left. Findings certainly could affect the C8 nerves. Mild disc disease seen at T2-3, without significant sequela. PARASPINAL SOFT TISSUES: No significant abnormality. ADDITIONAL FINDINGS: I see no signs of abnormal enhancement following contrast administration. IMPRESSION: 1. Degenerative changes of the cervical spine as described above. Findings at multiple levels might a ffect the exiting nerve roots. Significant findings are seen from C4-5 through C7-T1. Signer Name: Pieter Liriano MD, III Signed: 08/01/2021 4:14 PM Workstation Name: [id number]
--- NOTE | 2021-08-01 16:27 | Magnetic Resonance Report ---
MR thoracic spine wo/w con INDICATION / CLINICAL INFORMATION: 60 years Female; G35 MULTIPLE SCLEROSIS. TECHNIQUE: Multisequence, multiplanar images of the thoracic spine were obtained. COMPARISON: 08/03/2020 FINDINGS: ALIGNMENT: Mild kyphosis of the thoracic spine noted. VERTEBRAE:Mild loss of height seen at various levels, felt to be on a chronic degenerative basis, inc luding T5, T6, T7. Small Schmorl's node seen at various levels without endplate edema. Costovertebral, costotransverse, and facet joints demonstrate mild, multilevel areas of degenerative change. Overall, no significant foraminal narrowing appreciated. VISUALIZED SPINAL CORD: Cord signal abnormality is seen at T4-5. Subtle enhancement suggested in this region on postcontrast imaging. This finding might be consistent with patient's history of demyelina ting disease. Similar findings seen on prior. There may be a small to moderately sized focus of cord signal abnormality at the T12-L1 level-this fi nding is only really appreciated on sagittal T2 sequence. Findings may be artifactual. No other definitive signs of cord signal abnormality appreciated. Visualized conus medullaris is grossly normal in appearance. INTERVERTEBRAL DISCS: Mild, multilevel desiccation seen. Mild disc disease seen at various levels. Most marked findings on the right at T2-3 where there is a right paracentral/lateral recess disc prot rusion. There is slight encroachment upon the right anterior hemicord without impingement. Overall, there is no dominant herniation or canal stenosis seen PARASPINAL SOFT TISSUES: No significant abnormality. ADDITIONAL FINDINGS: None. IMPRESSION: 1. Cord signal abnormality as described above. Subtle enhancement may be present. Findings would be c ompatible with patient's history of multiple sclerosis. Similar type findings suggested on prior. Signer Name: Pieter Liriano MD, III Signed: 08/01/2021 4:23 PM Workstation Name: [id number]
--- NOTE | 2021-08-05 08:55 | Magnetic Resonance Report ---
MR lumbar spine wo/w con INDICATION / CLINICAL INFORMATION: 60 years Female; G35 MULTIPLE SCLEROSIS. TECHNIQUE: Multisequence, multiplanar images of the lumbar spine were obtained. COMPARISON: None available. FINDINGS: ALIGNMENT: No significant abnormality. VERTEBRAE:Grossly normal marrow signal and vertebral body height for age. Mild Modic type II changes seen at L5-S1. VISUALIZED SPINAL CORD: No significant abnormality. Conus is grossly normal in appearance. INTERVERTEBRAL DISCS: Multilevel disc desiccation noted. [id number] ANALYSIS: T10-11: By sagittal imaging, there is a small left central/foraminal disc protrusion which slightly e ncroaches upon the thoracic cord. No impingement. L1-2: Minimal disc bulge and facet hypertrophy. L2-3: Mild facet hypertrophy. L3-4: Mild disc bulge and facet hypertrophy. Broad-based foraminal/extraforaminal disc protrusion wit h slight encroachment upon the right L3 nerve. No impingement. Similar type findings seen on prior. L4-5: Mild to moderate disc bulge. Moderate facet ligamentum flavum hypertrophy. Mild to moderate the opal sac narrowing seen, component of which is related epidural fat. Mild foraminal narrowing on the l eft and moderate on the right from disc disease and facet hypertrophy. There is encroachment upon the right L4 nerve without impingement. Widened facet joints noted at this level. Flexion and extension views of the lumbar spine may be helpful in evaluating for segmental instability. Findings may have m ildly progressed from prior. L5-S1: Mild disc bulge and broad-based posterocentral disc protrusion. Mild facet hypertrophy. Mild t o moderate foraminal narrowing bilaterally with encroachment upon L5 nerves. No impingement seen. Sim ilar findings seen on prior. PARASPINAL SOFT TISSUES: Small synovial cyst projects posteriorly from the right L4-5 facet joint-thi s does not affect the vertebral canal. ADDITIONAL FINDINGS: None. IMPRESSION: 1. Degenerative changes of the lumbar spine as described above. Most marked findings appear to be at L4-5 or L5-S1. Please correlate with dermatomal distribution of patient's symptoms, if present. Signer Name: Pieter Liriano MD, III Signed: 08/05/2021 8:51 AM Workstation Name: [email or web address]
--- NOTE | 2021-08-05 09:03 | Magnetic Resonance Report ---
MR brain wo/w con INDICATION / CLINICAL INFORMATION: 60 years Female; G35 MULTIPLE SCLEROSIS. TECHNIQUE: Multiplanar, multisequence MR images of the brain were obtained. No axial T2 sequence was performed. COMPARISON: 08/03/2020 and 09/06/2019 FINDINGS: BRAIN / INTRACRANIAL CONTENTS: No acute hemorrhage, mass effect, midline shift, hydrocephalus, or acu te, large territorial infarct. No chronic infarct or atrophy. Minimal, nonspecific white matter disea se identified. No significant change from prior exam appreciated. I see no signs of abnormal enhancement following contrast administration. CRANIOCERVICAL JUNCTION: No significant abnormality. VASCULAR FLOW-VOIDS: No significant abnormality. ORBITS: No significant abnormality of visualized orbits. SINUSES / MASTOIDS: No significant abnormality in the visualized paranasal sinuses or mastoid air jerald ls. ADDITIONAL FINDINGS: None. IMPRESSION: 1. No focal mass, hemorrhage, hydrocephalus, or acute ischemia. 2. Minimal, nonspecific white matter disease with no significant interval change from prior exam appr eciated. Signer Name: Pieter Liriano MD, III Signed: 08/05/2021 8:59 AM Workstation Name: [id number]
== END 2021-08-01 08:35 | disposition home or self-care (01) ==
LOC: LAB 08:34
PROVIDERS: ATTEND Psychiatry & Neurology Neurology
DX: M50.33 Other cervical disc degeneration, cervicothoracic region (principal); M50.31 Other cervical disc degeneration, high cervical region; M50.323 Other cervical disc degeneration at C6-C7 level; M50.322 Other cervical disc degeneration at C5-C6 level; M50.321 Other cervical disc degeneration at C4-C5 level; Z11.4 Encounter for screening for human immunodeficiency virus [HIV]; Z01.84 Encounter for antibody response examination; Z11.59 Encounter for screening for other viral diseases; G35 Multiple sclerosis; M51.44 Schmorl's nodes, thoracic region; M40.294 Other kyphosis, thoracic region; R90.82 White matter disease, unspecified; M47.817 Spondylosis without myelopathy or radiculopathy, lumbosacral region; M48.07 Spinal stenosis, lumbosacral region; M51.37 Other intervertebral disc degeneration, lumbosacral region; M71.371 Other bursal cyst, right ankle and foot; Z79.899 Other long term (current) drug therapy
CPT/HCPCS: 36415; 70553; 72156; 72157; 72158; 80053; 82784; 85025; 86689; 86705; 86706; 86803; 87350; A9575

== ENCOUNTER 2021-08-29 10:58 | Outpatient (CLI) | payer BC ==
[2021-08-29 13:07] LABS: Bacteria,Urine 1+ /HPF (Negative); Bilirubin,Urine NEG (Negative); Blood,Urine NEG (Negative); Color,Urine Straw (Yellow); Mucus,Urine FEW /HPF; Protein,Urine <15 mg/dL mg/dL (Negative); Urobilinogen,Urine < 2.0 mg/dL (<2.0)
[2021-08-29 13:24] LABS: Calcium 9.5 mg/dL (8.4-10.2); Chol/HDL Ratio 2.64 %
== END 2021-08-29 10:59 | disposition home or self-care (01) ==
LOC: LAB 10:58
PROVIDERS: ATTEND Internal Medicine
DX: Z00.00 Encounter for general adult medical examination without abnormal findings (principal); E11.9 Type 2 diabetes mellitus without complications; E78.5 Hyperlipidemia, unspecified; E55.9 Vitamin D deficiency, unspecified; N20.2 Calculus of kidney with calculus of ureter
CPT/HCPCS: 36415; 80048; 80061; 81001; 82306; 83036; 84443

== ENCOUNTER 2022-02-25 09:10 | Outpatient (CLI) | payer BC ==
[2022-02-25 12:05] LABS: Calcium 10.1 mg/dL (8.4-10.2); Chol/HDL Ratio 3.07 %
== END 2022-02-25 09:11 | disposition home or self-care (01) ==
LOC: LABHHL 09:10
PROVIDERS: ATTEND Internal Medicine
DX: E11.9 Type 2 diabetes mellitus without complications (principal); E78.5 Hyperlipidemia, unspecified; N20.2 Calculus of kidney with calculus of ureter
CPT/HCPCS: 36415; 80048; 80061; 83036

== ENCOUNTER 2022-05-01 09:10 | Outpatient (CLI) | payer BC ==
[2022-05-01 13:44] LABS: Hematocrit 39.8 % (30.3-42.9); Hemoglobin 13.2 gm/dl (10.1-14.3); Mean Corpuscular HGB Conc 33 % (30-34); Mean Corpuscular Volume 92 fl (79-97); Platelet Count 258 K/mm3 (140-440); Red Blood Count 4.35 M/mm3 (3.65-5.03); Red Cell Distribution Width 16.9 % (13.2-15.2)
[2022-05-01 14:01] LABS: Calcium 10.1 mg/dL (8.4-10.2)
--- NOTE | 2022-05-01 14:51 | Magnetic Resonance Report ---
MRI BRAIN WITHOUT AND WITH CONTRAST INDICATION / CLINICAL INFORMATION: G35 MULTIPLE SCLEROSIS, 1 year follow up. TECHNIQUE: Multiplanar, multisequence MR images of the brain were obtained. Contrast: Clairscan: 18 ml, administered intravenously. COMPARISON: MRI brain 08/01/2021 and 08/03/2020. FINDINGS: BRAIN / INTRACRANIAL CONTENTS: Ventricles and cortical sulci are normal in size and configuration. Th ere is no mass effect. No evidence of intracranial hemorrhage or extra-axial fluid collection is seen . Several nonspecific foci of FLAIR and T2 weighted hyperintensity are noted. These are small finding s which measure up to about 4 mm in greatest dimension. Mild periventricular white matter hyperintens ity is also observed. Considerations include early microvascular ischemic change and demyelinating di sease. These subtle imaging findings are not specific for the patient's diagnosis of multiple scleros is. No additional areas of abnormal brain parenchymal signal intensity are identified. There is no in dication of remote cortical infarction. Diffusion weighted scans are negative. There is no indication of acute ischemic injury. The brainstem and cerebellum have an unremarkable appearance. MIDLINE STRUCTURES:No abnormalities are seen to involve the pituitary gland. Pineal region has an unr emarkable appearance. CRANIOCERVICAL JUNCTION: No abnormalities are identified at the craniocervical junction. VASCULAR FLOW-VOIDS: Normal flow-voids are present within the major intracranial vessels. ORBITS: The orbits have an unremarkable appearance. SINUSES / MASTOIDS: There is no indication of inflammatory disease in the paranasal sinuses or mastoi d air cells. Following the administration of intravenous contrast enhancement of normal vascular structures is dem onstrated. No areas of abnormal contrast enhancement are identified. IMPRESSION: 1. Several nonspecific foci of deep and periventricular white matter hyperintensity are noted. These findings are stable compared to previous studies dating back through 08/03/2020. 2. No foci of abnormal contrast enhancement are identified to suggest the presence of active demyelin ating lesions. Signer Name: Mikhail Berger MD Signed: 05/01/2022 2:47 PM Workstation Name: [email or web address]
--- NOTE | 2022-05-01 14:57 | Magnetic Resonance Report ---
MRI THORACIC SPINE WITHOUT AND WITH CONTRAST INDICATION / CLINICAL INFORMATION: G35 MS, 1 year follow-up, . TECHNIQUE: Multisequence, multiplanar images of the thoracic spine were obtained. Contrast dose report: Clairscan: 18 mL administered intravenously. COMPARISON: MR is a thoracic spine 08/03/2020 and 08/01/2021. FINDINGS: ALIGNMENT: Normal alignment overall. VERTEBRAE:Normal marrow signal and vertebral body height for age. THORACIC INTERVERTEBRAL DISCS: Widespread disc desiccation is noted. VISUALIZED SPINAL CORD: There is a persistent focal cord lesion extending from the level of the T4 pe dicles down through the T5 pedicles. This finding is consistent with the patient's diagnosis of multi ple sclerosis. A similar findings been present compared to previous studies dating back through 08/03. No additional definite cord lesions are identified. DEGENERATIVE FINDINGS: Broad-based central and right paracentral disc protrusion flattens the thecal sac slightly. This does not result in central canal stenosis or cord compression. PARASPINAL SOFT TISSUES: No significant abnormality. Contrast administration: Following administration of intravenous contrast material enhancement of nor mal vascular structures is demonstrated. No areas of abnormal contrast enhancement are identified. IMPRESSION: 1. Persistent focal cord lesion extending from the T4 pedicles to the T5 pedicles consistent with dem yelinating disease in this patient with history of multiple sclerosis. 2. Small right paracentral disc protrusion T2-3 with mild thecal sac deformity. Signer Name: Mikhail Berger MD Signed: 05/01/2022 2:53 PM Workstation Name: [email or web address]
--- NOTE | 2022-05-01 15:10 | Magnetic Resonance Report ---
MRI CERVICAL SPINE WITHOUT CONTRAST INDICATION / CLINICAL INFORMATION: G35 MULTIPLE SCLEROSIS, 1 year follow up. TECHNIQUE: Multisequence, multiplanar images of the cervical spine were obtained. Contrast dose report: Clairscan: 18 mL administered intravenously. COMPARISON: MRI cervical spine 08/03/2020 and 08/01/2021 FINDINGS: POSTOPERATIVE CHANGES: none CRANIOCERVICAL JUNCTION:No significant abnormality. ALIGNMENT: No significant abnormality. VERTEBRAE:Reactive change secondary to degenerative disc disease is observed in the C4 and C5 vertebr ae. These findings have progressed since previous study. CERVICAL INTERVERTEBRAL DISCS: Advanced disc desiccation is noted at the C4-5, C5-6, C6-7 and C7-T1 l evels. VISUALIZED SPINAL CORD: No definite intrinsic cord lesions are identified. [id number] ANALYSIS: C2-3: No significant disc abnormality, spinal canal stenosis, or neural foraminal stenosis. C3-4: No significant disc abnormality, spinal canal stenosis, or neural foraminal stenosis. C4-5: Disc desiccation is noted. Reactive change secondary to degenerative disc disease is present at the adjacent endplates. Anterior osteophyte formation is noted. Posterior disc osteophyte complex fl attens the thecal sac. There is decreased CSF surrounding the cord at this level. Mild central canal stenosis is observed. Additionally noted is moderate bilateral neuroforaminal stenosis at the C4-5 le helen. C5-6: Disc desiccation is noted with near complete loss of disc height. Anterior osteophyte formation is observed. Posterior disc osteophyte complex flattens the thecal sac slightly. There is decreased CSF signal intensity in the thecal sac at this level. AP diameter of spinal canal spine 8 mm consiste nt with mild central canal stenosis. Uncovertebral arthropathy contributes to severe bilateral forami nal stenosis at the C6 nerve root level. C6-7: Disc desiccation is noted. Anterior osteophyte formation is observed. Posterior disc osteophyte complex flattens the thecal sac. There is decreased CSF signal intensity surrounding the cord at thi s level. AP diameter of the spinal canal is about 9 mm consistent with mild central canal stenosis. U ncovertebral arthropathy contributes to severe bilateral foraminal stenosis at the C7 nerve root leve l. C7-T1: Disc desiccation is evident. Anterior osteophyte formation is observed. Central spinal canal r emains adequate in size. Moderate right-sided and mild left-sided neuroforaminal narrowing is noted. PARASPINAL SOFT TISSUES: No significant abnormality. Contrast ministration: Following administration of intravenous contrast material enhancement of nilam l vascular structures is demonstrated. No areas of abnormal contrast enhancement are identified. IMPRESSION: 1. Spread cervical spondylosis with multifocal neuroforaminal narrowing. 2. Mild central canal stenosis C4-, C5-6 and C6-7 levels. 3. No definite intrinsic cord lesions are identified. Signer Name: Mikhail Berger MD Signed: 05/01/2022 3:05 PM Workstation Name: [email or web address]
== END 2022-05-01 09:11 | disposition home or self-care (01) ==
LOC: MRI 09:10
PROVIDERS: ATTEND Psychiatry & Neurology Neurology
DX: M48.02 Spinal stenosis, cervical region (principal); M25.78 Osteophyte, vertebrae; G35 Multiple sclerosis; Z79.899 Other long term (current) drug therapy
CPT/HCPCS: 36415; 70553; 72156; 72157; 80053; 85027; A9575

== ENCOUNTER 2022-05-05 10:20 | Outpatient (CLI) | payer BC ==
--- NOTE | 2022-05-06 11:02 | Mammography Report ---
DIGITAL SCREENING MAMMOGRAM WITH CAD, 05/05/2022 CLINICAL INFORMATION / INDICATION: Routine screening mammography. TECHNIQUE: Digital bilateral 2D mammography was obtained in the craniocaudal and mediolateral obliqu e projections. This examination was interpreted with the benefit of Computer-Aided Detection analysis . COMPARISON: 05/03/2021, 03/22/2020 FINDINGS: Breast Density: The breasts are heterogeneously dense, which may obscure small masses. No dominant mass, suspicious calcifications, or architectural distortion in the left breast. Benign-a ppearing calcifications throughout the left breast are unchanged. A new asymmetry is noted centrally along the anterior right breast on CC imaging only measuring 1.8 c m and located approximately 5-6 cm from the nipple. This finding may localize to the middle depth of the right retroareolar region just above the nipple line on MLO imaging. Benign-appearing calcificati ons throughout the right breast have not significantly changed. No other significant abnormality of t he right breast. IMPRESSION: New asymmetry in the right breast as above should be further evaluated with a diagnostic right mammogram with spot compression views and a possible limited right breast ultrasound. Follow up recommendation: Special View: Spot Compression BI-RADS Category 0: INCOMPLETE. Needs additional imaging evaluation and/or prior mammograms for orion harman. A "normal" or negative report should not discourage follow up or biopsy of a clinically significant f inding. A written summary of these findings will be mailed to the patient. The patient will be entered into a mammography reporting system which will generate a reminder letter for the patient's next appointmen t at the appropriate interval. The [employer] recommends yearly mammograms starting at age 40 and continuing as l esau as a woman is in good health. Breast MRI is recommended for women with an approximate 20-25% or greater lifetime risk of breast cancer, including women with a strong family history of breast or ova shahid cancer or who have been treated for Hodgkin's disease. Signer Name: Ed Echevarria MD Signed: 05/06/2022 10:58 AM Workstation Name: [id number]
== END 2022-05-05 10:21 | disposition home or self-care (01) ==
LOC: MAMMO 10:20
PROVIDERS: ATTEND Obstetrics & Gynecology
DX: Z12.31 Encounter for screening mammogram for malignant neoplasm of breast (principal); N64.89 Other specified disorders of breast
CPT/HCPCS: 77067